=== PATIENT | female | born 1980 | race Caucasian/White ===

== ENCOUNTER 2016-11-18 01:17 | Emergency (ER) | payer MEDICAID ==
[2016-11-18] MEDS ORDERED: NORMAL SALINE 1000 ML 1,000 ML IV ONE (01:38)
[2016-11-18] MEDS ORDERED: METHOCARBAMOL INJ/PF 1000 MG/10 ML SDV IV ONE (01:39)
[2016-11-18] MEDS ORDERED: METOCLOPRAMIDE HCL INJ/PF 10 MG/2 ML SDV IV ONE (01:39)
[2016-11-18] MEDS ORDERED: DIPHENHYDRAMINE HCL 50 MG/ML VIAL IV ONE (01:39)
[2016-11-18] MEDS ORDERED: KETOROLAC TROMETHAMINE INJ/PF 30 MG/1 ML SDV IV ONE (01:40)
--- NOTE | 2016-11-18 01:42 | ER Document Report ---
ED Headache - General Time seen by provider: 01:40 TRAVEL OUTSIDE OF THE [place] IN LAST 30 DAYS: No - General Chief Complaint: Headache >24 hrs old Stated Complaint: POSSIBLE MIGRANE,VOMITING Notes: Patient is a 35-year-old female that comes emergency department for chief complaint of a headache, headache has been present for the past 2 days, worse on the right side with throbbing sensation, she also reports some tightness and pain in the right side of her neck/shoulder. Patient states that she is to be on amitriptyline and she occasionally has had migraine headaches like this where she has had be treated with IV medications. She denies that this is worse than her typical migraine. She reports nausea but has not vomited today, states she has not eaten anything either. Patient denies injury to her head or neck, denies fever. She has an IUD in place. (SOHAIL FERNANDES) - Related Data Allergies/Adverse Reactions: codeine [Codeine] Allergy (Verified 11/11/12 15:36) Past Medical History - General Information source: Patient - Social History Smoking Status: Never Smoker Frequency of alcohol use: None Drug Abuse: None Lives with: Family Family History: Reviewed & Not Pertinent, Other Patient has suicidal ideation: No Patient has homicidal ideation: No Pulmonary Medical History: Reports: Hx Asthma Neurological Medical History: Denies: Hx Cerebrovascular Accident Renal/ Medical History: Denies: Hx Peritoneal Dialysis GI Medical History: Reports: Hx Cirrhosis, Hx Hepatitis - CComment Only: Hx Ulcer - hepatits c Musculoskeltal Medical History: Reports Hx Arthritis, Reports Hx Musculoskeletal Deformity Psychiatric Medical History: Reports: Hx Anxiety, Hx Depression Traumatic Medical History: Reports: Hx Fractures - right forearm Infectious Medical History: Reports: Hx Hepatitis - C Past Surgical History: Reports: Hx Section, Hx Dilation and Curettage, Hx Orthopedic Surgery - BL LEs, Hx Tonsillectomy - Immunizations Hx Diphtheria, Pertussis, Tetanus Vaccination: No Review of Systems - Review of Systems Constitutional: No symptoms reported EENT: No symptoms reported Cardiovascular: No symptoms reported Respiratory: No symptoms reported Gastrointestinal: See HPI Genitourinary: No symptoms reported Female Genitourinary: No symptoms reported Musculoskeletal: No symptoms reported Skin: No symptoms reported Hematologic/Lymphatic: No symptoms reported Neurological/Psychological: See HPI Physical Exam - Vital signs Interpretation: Normal - General General appearance: Alert In distress: Mild - Appears mildly uncomfortable, no severe distress - HEENT Head: Normocephalic, Atraumatic Eyes: Normal Conjunctiva: Normal Extraocular movements intact: Yes Eyelashes: Normal Pupils: PERRL Sinus: Normal Nasal: Normal Mouth/Lips: Normal Mucous membranes: Normal Pharynx: Normal Neck: Normal - Respiratory Respiratory status: No respiratory distress Chest status: Nontender Breath sounds: Normal. No: Decreased air movement, Wheezing Chest palpation: Normal - Cardiovascular Rhythm: Regular. No: Tachycardia Heart sounds: Normal auscultation, S1 appreciated, S2 appreciated Murmur: No - Abdominal Inspection: Normal Distension: No distension Bowel sounds: Normal Tenderness: Nontender. No: Tender, Guarding Organomegaly: No organomegaly - Back Back: Tender - Mild right trapezius tenderness, no spinal tenderness, normal upper and lower extremity range of motion, patient with mild tenderness with lateral rotation of neck, no nuchal rigidity, no saddle anesthesia, normal distal neurovascular exam. No signs of trauma. - Extremities General upper extremity: Normal inspection, Nontender, Normal color, Normal ROM , Normal temperature General lower extremity: Normal inspection, Nontender, Normal color, Normal ROM , Normal temperature, Normal weight bearing. No: Maria Guadalupe's sign - Neurological Neuro grossly intact: Yes Cognition: Normal Orientation: AAOx4 [place] Coma Scale Eye Opening: Spontaneous [place] Coma Scale Verbal: Oriented [place] Coma Scale Motor: Obeys Commands [place] Coma Scale Total: 15 Speech: Normal Motor strength normal: LUE, RUE, LLE, RLE Sensory: Normal - Psychological Associated symptoms: Normal affect, Normal mood - Skin Skin Temperature: Warm Skin Moisture: Dry Skin Color: Normal Course - Re-evaluation Re-evalutation: Patient appears mildly uncomfortable on initial examination but has no neurological deficits, she does not appear to be in distress. Very mild right trapezius tenderness and slight tenderness with lateral range of motion of the neck. No nuchal rigidity, fever, injury. Patient reports history of the same, states this is identical to previous migraines. Treatment patient reports improvement but not resolution, states she does better with Phenergan, patient also given dexamethasone after discussion. On reevaluation again patient sleeping and aroused, states her headache is completely gone, she is smiling, she states she is ready to go home. Very low suspicion of subarachnoid hemorrhage, meningitis, or other acute abnormality. Recommended she follow up with primary care for additional management, discussed return precautions, patient states understanding and agreement. (SOHAIL FERNANDES) - Vital Signs Vital signs: Temp Pulse Resp BP Pulse Ox 98.1 F 82 16 118/82 98 11/18/16 03:24 11/18/16 03:56 11/18/16 03:56 11/18/16 03:56 11/18/16 03:56 Discharge - Discharge Clinical Impression: Headache Qualifiers: Headache type: unspecified Headache chronicity pattern: acute headache Intractability: not intractable Qualified Code(s): R51 - Headache Condition: Stable Disposition: HOME, SELF-CARE Additional Instructions: Your symptoms and response to treatment are consistent with a migraine. Follow up with primary care for additional management. Return to emergency department for any returned or new concerning symptoms. Referrals: GENO VORA MD [Primary Care Provider] - Follow up as needed
[2016-11-18] MEDS ORDERED: PROMETHAZINE HCL INJ 25 MG/1 ML VIAL IM ONE (02:47)
[2016-11-18] MEDS ORDERED: DEXAMETHASONE SOD PHOS INJ 10 MG/1 ML VIAL IV ONE (02:48)
[2016-11-18] MEDS ORDERED: PROMETHAZINE HCL INJ 50 MG/1 ML VIAL ONE (03:14)
[2016-11-18 03:59] VITALS: BP 118/82
== END 2016-11-18 03:59 | disposition home or self-care (01) ==
LOC: ER 01:17
DX: R51 Headache (principal); R11.0 Nausea; Z88.6 Allergy status to analgesic agent; Z86.19 Personal history of other infectious and parasitic diseases; Z97.5 Presence of (intrauterine) contraceptive device
CPT/HCPCS: 99283; 96372; 96374; 96375; J1200; J2800; J1885; J2765; J2550; J7030; J1100

== ENCOUNTER 2017-03-08 17:08 | Emergency (ER) | payer MEDICAID ==
[2017-03-08 21:02] LABS: APPEARANCE,URINE TURBID; BILIRUBIN,URINE NEGATIVE (NEGATIVE); GLUCOSE, URINE NEGATIVE (NEGATIVE); KETONES,URINE 20 mg/dL (NEGATIVE); LEUKOCYTE ESTERASE,URINE TRACE (NEGATIVE); NITRITE,URINE NEGATIVE (NEGATIVE); PROTEIN,URINE NEGATIVE (NEGATIVE); URINE SPECIFIC GRAVITY 1.026; UROBILINOGEN,URINE NEGATIVE mg/dL (<2.0)
--- NOTE | 2017-03-08 21:35 | ER Document Report ---
ED GI/ - General Chief Complaint: Flank Pain Stated Complaint: RIGHT SIDE PAIN Time Seen by Provider: 03/08/17 21:34 Notes: The patient is a 36-year-old female who presents with 2 days of right flank pain radiating into her groin, described as intermittent. She is also having nausea. Denies vomiting, fevers, hematuria, diarrhea, constipation, rash, chest pain or shortness of breath. TRAVEL OUTSIDE OF THE [place] IN LAST 30 DAYS: No - Related Data Allergies/Adverse Reactions: codeine [Codeine] Allergy (Verified 11/11/12 15:36) Past Medical History - General Information source: Patient - Social History Smoking Status: Current Every Day Smoker Chew tobacco use (# tins/day): No Frequency of alcohol use: None Drug Abuse: None Family History: Reviewed & Not Pertinent, Other Patient has suicidal ideation: No Patient has homicidal ideation: No Pulmonary Medical History: Reports: Hx Asthma Neurological Medical History: Denies: Hx Cerebrovascular Accident Renal/ Medical History: Denies: Hx Peritoneal Dialysis GI Medical History: Reports: Hx Cirrhosis, Hx Hepatitis - CComment Only: Hx Ulcer - hepatits c Musculoskeltal Medical History: Reports Hx Arthritis, Reports Hx Musculoskeletal Deformity Psychiatric Medical History: Reports: Hx Anxiety, Hx Depression Traumatic Medical History: Reports: Hx Fractures - right forearm Infectious Medical History: Reports: Hx Hepatitis - C Past Surgical History: Reports: Hx Section, Hx Dilation and Curettage, Hx Orthopedic Surgery - BL LEs, Hx Tonsillectomy - Immunizations Hx Diphtheria, Pertussis, Tetanus Vaccination: No Review of Systems - Review of Systems Notes: REVIEW OF SYSTEMS: CONSTITUTIONAL: -fevers, -chills EENT: -eye pain, -difficulty swallowing, -nasal congestion CARDIOVASCULAR:-chest pain, -syncope. RESPIRATORY: -cough, -SOB GASTROINTESTINAL: +abdominal pain, +nausea, -vomiting, -diarrhea GENITOURINARY: -dysuria, -hematuria MUSCULOSKELETAL: +right flank pain, -neck pain SKIN: -rash or skin lesions. HEMATOLOGIC: -easy bruising or bleeding. LYMPHATIC: -swollen, enlarged glands. NEUROLOGICAL: -altered mental status or loss of consciousness, -headache, - neurologic symptoms PSYCHIATRIC: -anxiety, -depression. ALL OTHER SYSTEMS REVIEWED AND NEGATIVE. Physical Exam - Vital signs Vitals: Temp Pulse Resp BP Pulse Ox 98.8 F 82 15 108/76 96 03/08/17 17:22 03/08/17 17:22 03/08/17 17:22 03/08/17 17:22 03/08/17 17:22 - Notes Notes: PHYSICAL EXAMINATION: GENERAL: Well-appearing, well-nourished and in no acute distress. HEAD: Atraumatic, normocephalic. EYES: Pupils equal round and reactive to light, extraocular movements intact, sclera anicteric, conjunctiva are normal. ENT: nares patent, oropharynx clear without exudates. Moist mucous membranes. NECK: Normal range of motion, supple without lymphadenopathy LUNGS: Breath sounds clear to auscultation bilaterally and equal. No wheezes rales or rhonchi. HEART: Regular rate and rhythm without murmurs ABDOMEN: Soft, nontender, normoactive bowel sounds. No guarding, no rebound. No masses appreciated. EXTREMITIES: Normal range of motion, no pitting or edema. No cyanosis. NEUROLOGICAL: Cranial nerves grossly intact. Normal speech, normal gait. Normal sensory and motor exams. PSYCH: Normal mood, normal affect. SKIN: Warm, Dry, normal turgor, no rashes or lesions noted. Course - Re-evaluation Re-evalutation: Patient appears well. Her CT scan does not show evidence of appendicitis or kidney stones. Her urinalysis does not show evidence of pyelonephritis. Instructed patient to begin anti-inflammatories and f/u at PMD. - Vital Signs Vital signs: Temp Pulse Resp BP Pulse Ox 98.8 F 82 15 108/76 96 03/08/17 17:22 03/08/17 17:22 03/08/17 17:22 03/08/17 17:22 03/08/17 17:22 - Laboratory Laboratory results interpreted by me: 03/08/17 17:28 Urine Ketones 20 H Ur Leukocyte Esterase TRACE H - Diagnostic Test Radiology reviewed: Image reviewed, Reports reviewed Radiology results interpreted by me: CT Renal Stone study: NAD Discharge - Discharge Clinical Impression: Nausea, Right flank pain Condition: Stable Disposition: HOME, SELF-CARE Additional Instructions: Flank Pain We weren't able to prove an exact cause for your flank pain. Pain in the flank can be caused by a muscle strain or spasm. Sometimes a kidney stone causes pain, but can't be found on our tests. Infection in the kidney should be evident on a urine test. Early shingles can occasionally cause flank pain, without the rash that proves the diagnosis. On rare occasions, disease of the pancreas, aorta, spleen, or colon can create pain in the flank. At this time, there's no evidence of a dangerous condition, and it seems safe for you to be at home. If the pain goes away and does not come back, no further testing will be needed. If pain persists, or becomes more severe, we may need to repeat some tests or order additional new testing. Blood in the urine, urgency to urinate frequently, and pain that radiates to the groin can indicate a kidney stone. Fever may mean that the pain is due to infection, either of the kidney or the colon (diverticulitis). If your pain is early shingles, you should develop an eruption of blisters in the painful area within a few days. Call the doctor or return if you have pain that is spreading or becoming more severe, pain that does not resolve with time, fever, or any other new symptoms. Prescriptions: Ondansetron [Zofran Odt 4 mg Tablet] 1 - 2 tab PO Q4H PRN #15 tab.rapdis PRN Reason: For Nausea/Vomiting
--- NOTE | 2017-03-08 22:39 | RADIOLOGY REPORT (SQ) ---
EXAM DESCRIPTION: CT LTD RENAL STONE PROTOCOL ON COMPLETED DATE/TIME: 03/08/2017 9:58 pm REASON FOR STUDY: right flank pain into groin COMPARISON: None. TECHNIQUE: CT scan of the abdomen and pelvis performed without intravenous or oral contrast. Images reviewed with lung, soft tissue, and bone windows. Reconstructed coronal and sagittal MPR images revi ewed. All images stored on PACS. All CT scanners at this facility use dose modulation, iterative reconstruction, and/or weight based d osing when appropriate to reduce radiation dose to as low as reasonably achievable (ALARA). [facility]: Dose Right [facility]: CareDose [facility]: Dose Right [facility]: Teradose 4D [facility]: Smart Textingly RADIATION DOSE: Up-to-date CT equipment and radiation dose reduction techniques were employed. CTDIv ol: 8.1 mGy. DLP: 411 mGy-cm.mGy. LIMITATIONS: None. FINDINGS: LOWER CHEST: No significant findings. No nodules or infiltrates. NON-CONTRASTED LIVER, SPLEEN, ADRENALS: Evaluation limited by lack of IV contrast. No identified sign ificant masses. PANCREAS: No masses. No peripancreatic inflammatory changes. GALLBLADDER: No identified stones by CT criteria. No inflammatory changes to suggest cholecystitis. RIGHT KIDNEY AND URETER: No suspicious masses. Assessment limited by lack of IV contrast. No signif icant calcifications. No hydronephrosis or hydroureter. LEFT KIDNEY AND URETER: No suspicious masses. Assessment limited by lack of IV contrast. No signifi cant calcifications. No hydronephrosis or hydroureter. AORTA AND RETROPERITONEUM: No aneurysm. No retroperitoneal masses or adenopathy. BOWEL AND PERITONEAL CAVITY: No obvious masses or inflammatory changes. No free fluid. APPENDIX: Normal. PELVIS, BLADDER, AND ABDOMINAL WALL:IUD present in the uterus. No abnormal masses. No free fluid. Bl adder normal. BONES: No significant findings. OTHER: No other significant finding. IMPRESSION: NO ACUTE PROCESS IN THE ABDOMEN OR PELVIS. TECHNICAL DOCUMENTATION: JOB ID: [id number] Quality ID # [id number]: Final reports with documentation of one or more dose reduction techniques (e.g., Au tomated exposure control, adjustment of the mA and/or kV according to patient size, use of iterative reconstruction technique) 2010 [employer]- All Rights Reserved
[2017-03-08] MEDS ORDERED: IBUPROFEN 600 MG TABLET PO ONE (22:56)
[2017-03-08] MEDS ORDERED: ONDANSETRON 4 MG TAB.RAPDIS PO ONE (22:56)
[2017-03-08] MEDS ORDERED: HYDROCODONE/ACETAMINOPHEN 5-325 MG TABLET PO ONE (22:56)
[2017-03-08 23:33] VITALS: BP 108/74
== END 2017-03-08 23:30 | disposition home or self-care (01) ==
LOC: ER 17:08
DX: R10.9 Unspecified abdominal pain (principal); R11.0 Nausea; J45.909 Unspecified asthma, uncomplicated; F17.200 Nicotine dependence, unspecified, uncomplicated; Z88.5 Allergy status to narcotic agent; Z87.19 Personal history of other diseases of the digestive system; Z86.19 Personal history of other infectious and parasitic diseases
CPT/HCPCS: 99284; 81025; 81001; 76380; S0119; J3490

== ENCOUNTER 2017-06-14 16:16 | Emergency (ER) | payer MEDICAID ==
--- NOTE | 2017-06-14 17:23 | ER Document Report ---
HPI - HPI Pain Level: 3 Notes: Patient is a 36-year-old female who presents ED complaining of distal right forearm pain and swelling status post fall downstairs prior to arrival. Patient states that she fell on her wrist and did not hit her head or lose consciousness. She denies any nausea or vomiting. Patient states that she does have a previous history of that wrist of screws and plate placement. Patient states that she has noticed swelling to the wrist which is not normally there. Patient does have pain to that area, but denies any pain or discomfort into her hand or fingers. Patient states that she is still able to move her hand and fingers without difficulties. She has not had any numbness or tingling. She has not noticed any redness or bruising. Patient admits to smoking but denies IV drug use. Denies any headache, fever, head injury, neck pain, changes in vision/speech/mentation/hearing, URI, sore throat, chest pain, palpitations, syncope, cough, shortness of breath, wheeze, dyspnea, abdominal pain, nausea/vomiting/diarrhea, urinary retention, dysuria, hematuria, loss of control of bowel or bladder, numbness/tingling, saddle anesthesia, muscle paralysis/weakness, or rash. - ROS Notes: REVIEW OF SYSTEMS: CONSTITUTIONAL : Denies fever, chills, or sweats. Denies recent illness. EENT: Denies eye, ear, throat, or mouth pain or symptoms. Denies nasal or sinus congestion or discharge. Denies throat, tongue, or mouth swelling or difficulty swallowing. CARDIOVASCULAR: Denies chest pain. Denies palpitations or racing or irregular heart beat. Denies ankle edema. RESPIRATORY: Denies cough, cold, or chest congestion. Denies shortness of breath, difficulty breathing, or wheezing. GASTROINTESTINAL: Denies abdominal pain or distention. Denies nausea, vomiting , or diarrhea. GENITOURINARY: Denies difficulty urinating, painful urination, burning, frequency, blood in urine, or discharge. MUSCULOSKELETAL: see hpi SKIN: Denies rash, lesions or sores. NEUROLOGICAL: Denies confusion or altered mental status. Denies passing out or loss of consciousness. Denies dizziness or lightheadedness. Denies headache. Denies weakness or paralysis or loss of use of either side. Denies problems with gait or speech. Denies sensory loss, numbness, or tingling. ALL OTHER SYSTEMS REVIEWED AND NEGATIVE. Dictation was performed using [employer] voice recognition software - REPRODUCTIVE Reproductive: DENIES: : Past Medical History - Social History Smoking Status: Current Every Day Smoker Family History: Reviewed & Not Pertinent, Other Pulmonary Medical History: Reports: Hx Asthma Neurological Medical History: Denies: Hx Cerebrovascular Accident Renal/ Medical History: Denies: Hx Peritoneal Dialysis GI Medical History: Reports: Hx Cirrhosis, Hx Hepatitis - CComment Only: Hx Ulcer - hepatits c Musculoskeltal Medical History: Reports Hx Arthritis, Reports Hx Musculoskeletal Deformity Psychiatric Medical History: Reports: Hx Anxiety, Hx Depression Traumatic Medical History: Reports: Hx Fractures - right forearm Infectious Medical History: Reports: Hx Hepatitis - C Past Surgical History: Reports: Hx Section, Hx Dilation and Curettage, Hx Orthopedic Surgery - BL LEs, Hx Tonsillectomy - Immunizations Hx Diphtheria, Pertussis, Tetanus Vaccination: No Vertical Provider Document - CONSTITUTIONAL Agree With Documented VS: Yes Notes: PHYSICAL EXAMINATION: GENERAL: Well-appearing, well-nourished and in no acute distress. A&Ox4 LUNGS: Breath sounds clear to auscultation bilaterally and equal. No wheezes rales or rhonchi. HEART: Regular rate and rhythm without murmurs, rubs, gallops. Musculoskeletal: Rt elbow, wrist, hand, fingers: FROM to passive/active. Strength 5+/5. + swelling noted to the distal forearm. No obvious ecchymosis or erythema noted. + tenderness to the distal radius/ulna to palp. N/V intact distal. No scaphoid tenderness. No other bony tenderness. Compartment is soft and non-tender. Extremities: No cyanosis, clubbing, or edema b/l. Peripheral pulses 2+. Capillary refill less than 3 seconds. NEUROLOGICAL: Normal speech, normal gait. Normal sensory, motor exams PSYCH: Normal mood, normal affect. SKIN: Warm, Dry, normal turgor, no rashes or lesions noted. - INFECTION CONTROL TRAVEL OUTSIDE OF THE [place] IN LAST 30 DAYS: No - RESPIRATORY O2 Sat by Pulse Oximetry: 97 Course - Re-evaluation Re-evalutation: 06/14/17 17:55 Patient is an afebrile, well-hydrated, 36-year-old female who presents the ED with wrist pain, suspect sprain versus strain. Vitals are stable. PE is otherwise unremarkable for any neurovascular compromise, obvious tendon/ ligament rupture, obvious fracture or dislocation. X-ray was unremarkable for any acute pathology. Recommend conservative measures for symptoms. Recheck with your PCM in 3-5 days. Return to the ED with any worsening/concerning symptoms otherwise as reviewed in discharge. Consider consult orthopedics and physical therapy. Patient is in agreement. - Vital Signs Vital signs: Temp Pulse Resp BP Pulse Ox 98.5 F 65 18 114/74 97 06/14/17 16:37 06/14/17 16:37 06/14/17 16:37 06/14/17 16:37 06/14/17 16:37 Discharge - Discharge Clinical Impression: Right wrist pain Condition: Stable Disposition: HOME, SELF-CARE Instructions: Wrist Sprain ([facility]), Contusion ([facility]), Ice & Elevation ([facility]) Additional Instructions: Rest, Ice, Compression, Elevation Tylenol/ibuprofen as needed Light stretches daily Strength exercises as able Moist heat and massage may help F/u with your PCP in 3-5 days for a recheck Consider consult(s) with Orthopedics/physical therapy for ongoing/worsening symptoms Return to the ED with any worsening symptoms and/or development of fever, headache, chest pain, palpitations, syncope, shortness of breath, trouble breathing, abdominal pain, n/v/d, muscle weakness/paralysis, numbness/tingling, swelling, redness, or other worsening symptoms that are concerning to you. Prescriptions: Naproxen 500 mg PO BID PRN #30 tablet PRN Reason: Referrals: [facility] [Provider Group] - Follow up as needed
--- NOTE | 2017-06-14 17:47 | RADIOLOGY REPORT (SQ) ---
EXAM DESCRIPTION: FOREARM RIGHT COMPLETED DATE/TIME: 06/14/2017 5:36 pm REASON FOR STUDY: distal forearm pain and swelling s/p injury COMPARISON: None. NUMBER OF VIEWS: Two views. TECHNIQUE: Two radiographic images acquired of the right forearm, including elbow and wrist in at le ast one projection. LIMITATIONS: None. FINDINGS: MINERALIZATION: Normal. BONES: No acute fracture. No bone lesions. SOFT TISSUES: No obvious swelling or foreign body. OTHER: There is a compression plate on the distal ulna from a prior fracture. IMPRESSION: NEGATIVE STUDY OF THE RIGHT FOREARM. NO RADIOGRAPHIC EVIDENCE OF ACUTE INJURY. TECHNICAL DOCUMENTATION: JOB ID: [id number] [employer]- All Rights Reserved
[2017-06-14 18:16] VITALS: BP 107/68
== END 2017-06-14 18:13 | disposition home or self-care (01) ==
LOC: ER 16:16
DX: M25.531 Pain in right wrist (principal); M79.89 Other specified soft tissue disorders; W10.9XXA Fall (on) (from) unspecified stairs and steps, initial encounter; J45.909 Unspecified asthma, uncomplicated; F17.200 Nicotine dependence, unspecified, uncomplicated; Z87.81 Personal history of (healed) traumatic fracture; Z98.890 Other specified postprocedural states
CPT/HCPCS: 99283

== ENCOUNTER 2017-08-28 17:02 | Emergency (ER) | payer MEDICAID ==
[2017-08-28 18:04] VITALS: BP 118/79
[2017-08-28] MEDS ORDERED: HYDROCODONE/ACETAMINOPHEN 5-325 MG TABLET PO ONE (18:49)
[2017-08-28] MEDS ORDERED: ONDANSETRON 4 MG TAB.RAPDIS PO ONE ×2 (18:49→22:53)
[2017-08-28 21:30] LABS: HEMATOCRIT 41.8 % (36.0-47.0); HEMOGLOBIN 14.6 g/dL (12.0-15.5); MEAN CORPUSCULAR HEMOGLOBIN 30.9 pg (27.0-33.4); MEAN CORPUSCULAR VOLUME 88 fl (80-97); PLATELET COUNT 153 10^3/uL (150-450); RED BLOOD COUNT 4.74 10^6/uL (3.72-5.28); RED CELL DISTRIBUTION WIDTH 12.8 % (11.5-14.0); WHITE BLOOD COUNT 13.6 10^3/uL (4.0-10.5)
[2017-08-28 21:44] LABS: ALANINE AMINOTRANSFERASE 28 U/L (9-52); ALBUMIN 5.2 g/dL (3.5-5.0); ALKALINE PHOSPHATASE 60 U/L (38-126); ANION GAP 19 (5-19); ASPARTATE AMINO TRANSFERASE 21 U/L (14-36); BILIRUBIN,DIRECT 0.2 mg/dL (0.0-0.4); BILIRUBIN,TOTAL 0.9 mg/dL (0.2-1.3); BLOOD UREA NITROGEN 13 mg/dL (7-20); CARBON DIOXIDE 18 mmol/L (22-30); CHLORIDE 105 mmol/L (98-107); GLUCOSE 95 mg/dL (75-110); LIPASE 63.6 U/L (23-300); POTASSIUM 4.1 mmol/L (3.6-5.0); SODIUM 141.5 mmol/L (137-145); TOTAL PROTEIN 7.9 g/dL (6.3-8.2)
[2017-08-28 21:46] LABS: ABSOLUTE MONOCYTES # (MANUAL) 0.4 10^3/uL (0.1-1.4); ABSOLUTE NEUTROPHILS# (MANUAL) 12.2 10^3/uL (1.7-8.2); BAND NEUTROPHILS % (MANUAL) 2 % (3-5); BASOPHILS % (MANUAL) 0 % (0-2); EOSINOPHILS % (MANUAL) 0 % (0-6); LYMPHOCYTES % (MANUAL) 5 % (13-45); MONOCYTES % (MANUAL) 3 % (3-13); SEGMENTED NEUTROPHILS % (MAN) 88 % (42-78); TOTAL CELLS COUNTED 100
[2017-08-28 21:47] LABS: PLATELET COMMENT ADEQUATE; RBC MORPHOLOGY COMMENT NORMO-CYTIC/CHROMIC
--- NOTE | 2017-08-28 22:56 | ER Document Report ---
ED Medical Screen (RME) - General Chief Complaint: Shortness Of Breath Stated Complaint: CHEST PAIN Time Seen by Provider: 08/28/17 18:49 Information source: Patient Notes: PT VOMITING, ZOFRAN ORDERED TRAVEL OUTSIDE OF THE [place] IN LAST 30 DAYS: No - Related Data Allergies/Adverse Reactions: codeine [Codeine] Allergy (Verified 08/28/17 17:57) Past Medical History - Social History Chew tobacco use (# tins/day): No Frequency of alcohol use: None Drug Abuse: None Pulmonary Medical History: Reports: Hx Asthma Neurological Medical History: Denies: Hx Cerebrovascular Accident Renal/ Medical History: Denies: Hx Peritoneal Dialysis GI Medical History: Reports: Hx Cirrhosis, Hx Hepatitis - CComment Only: Hx Ulcer - hepatits c Musculoskeltal Medical History: Reports Hx Arthritis, Reports Hx Musculoskeletal Deformity Psychiatric Medical History: Reports: Hx Anxiety, Hx Depression Traumatic Medical History: Reports: Hx Fractures - right forearm Infectious Medical History: Reports: Hx Hepatitis - C Past Surgical History: Reports: Hx Section, Hx Dilation and Curettage, Hx Orthopedic Surgery - BL LEs, Hx Tonsillectomy - Immunizations Hx Diphtheria, Pertussis, Tetanus Vaccination: No Physical Exam - Vital signs Vitals: Temp Pulse Resp BP Pulse Ox 98.4 F 78 12 118/79 100 08/28/17 18:02 08/28/17 18:02 08/28/17 18:02 08/28/17 18:02 08/28/17 18:02 Course - Re-evaluation Re-evalutation: 08/28/17 22:55 ZOFRAN ORDERED, PT VOMITING - Vital Signs Vital signs: Temp Pulse Resp BP Pulse Ox 98.4 F 78 12 118/79 100 08/28/17 18:02 08/28/17 18:02 08/28/17 18:02 08/28/17 18:02 08/28/17 18:02 - Laboratory Result Diagrams: 08/28/17 21:13 08/28/17 21:13 Laboratory results interpreted by me: 08/28/17 08/28/17 21:13 21:13 WBC 13.6 H Seg Neuts % (Manual) 88 H Band Neutrophils % 2 L Lymphocytes % (Manual) 5 L Abs Neuts (Manual) 12.2 H Carbon Dioxide 18 L Calcium 11.0 H Albumin 5.2 H
--- NOTE | 2017-08-29 09:27 | EKG REPORT ---
SEVERITY:- NORMAL ECG - SINUS RHYTHM : Confirmed by: Yamini Castle 29-Aug-2017 09:26:43
== END 2017-08-29 01:00 | disposition left against medical advice (07) ==
LOC: ER 17:02
DX: Z53.21 Procedure and treatment not carried out due to patient leaving prior to being seen by health care provider (principal); R06.02 Shortness of breath; R07.9 Chest pain, unspecified; R11.10 Vomiting, unspecified
CPT/HCPCS: 93005; 99281; 36415; 83690; 85025; 80053; 93010; S0119

== ENCOUNTER → 2018-03-08 | Outpatient (CLI) | payer OTHER ==
--- NOTE | 2018-03-08 14:00 | WOMENS IMAGING REPORT ---
EXAM DESCRIPTION: BILAT DIAGNOSTIC MAMMO W/CAD; U/S BREAST UNILAT LIMITED COMPLETED DATE/TIME: 03/08/2018 12:54 pm; 03/08/2018 1:24 pm REASON FOR STUDY: MASS; LEFT BREAST LUMP COMPARISON: None. TECHNIQUE: Standard craniocaudal and mediolateral oblique views of each breast recorded using digita l acquisition. True lateral and cone compression views of the left breast. LIMITATIONS: None. FINDINGS: RIGHT BREAST MASSES: No suspicious masses. CALCIFICATIONS: No new or suspicious calcifications. ARCHITECTURAL DISTORTION: None. DEVELOPING DENSITY: None. ASYMMETRY: None noted. OTHER: No other significant findings. LEFT BREAST MASSES: Heterogeneous mass with central calcifications and architectural distortion in the upper oute r quadrant 1-2 o'clock position. CALCIFICATIONS: See above. ARCHITECTURAL DISTORTION: See above. DEVELOPING DENSITY: None. ASYMMETRY: None noted. OTHER: No other significant finding. Read with the assistance of CAD: .[facility] - R2 Cenova Version 1.3 .[facility] Imaging - R2 Cenova Version 1.3 .[facility] Imaging - R2 Cenova Version 2.4 .[facility] - R2 Cenova Version 2.4 .[facility] - R2 Pipe Cleaning Machine Operator Version 9.2 Ultrasound left breast demonstrates 4.7 x 3.6 x 1.9 cm heterogeneous mass with internal flow. IMPRESSION: Highly suspicious mass left breast. BREAST DENSITY: b. There are scattered areas of fibroglandular density. BIRAD: 5 Highly suggestive of malignancy. Appropriate action should be taken. RECOMMENDATION: RECOMMENDED FOLLOW UP: Birads 5: Biopsy should be performed in the absence of clinic al contraindication. SPECIFIC INTERVENTION/IMAGING/CONSULTATION RECOMMENDED:The suspicious finding(s) amenable to US guide d core/vacuum assisted biopsy. COMMUNICATION:The imaging findings were not discussed with the patient. Her referring provider has be en notified of the findings. COMMENT: The patient has been notified of the results by letter per SA requirements. Additional no tification policies are in place for contacting patient with suspicious or incomplete findings. Quality ID #225: The [employer] recommends an annual screening mammogram for women aged 40 years or over. This facility utilizes a reminder system to ensure that all patients receive reminder letters, and/or direct phone calls for appointments. This includes reminders for routine scr eening mammograms, diagnostic mammograms, or other Breast Imaging Interventions when appropriate. Th is patient will be placed in the appropriate reminder system. The [employer] (ACR) has developed recommendations for screening MRI of the breast s in certain patient populations, to be used in conjunction with mammography. Breast MRI surveillanc e may be appropriate for women with more than 20% lifetime risk of developing breast cancer as deter mined by genetic testing, significant family history of the disease, or history of mantle radiation f or Hodgkins Disease. ACR Practice Guidelines 2008. TECHNICAL DOCUMENTATION: FINDING NUMBER: (1) ASSESSMENT: (1) JOB ID: [id number] [employer]- All Rights Reserved Reading location - IP/workstation name: [facility]
--- NOTE | 2018-03-08 14:00 | WOMENS IMAGING REPORT ---
EXAM DESCRIPTION: BILAT DIAGNOSTIC MAMMO W/CAD; U/S BREAST UNILAT LIMITED COMPLETED DATE/TIME: 03/08/2018 12:54 pm; 03/08/2018 1:24 pm REASON FOR STUDY: MASS; LEFT BREAST LUMP COMPARISON: None. TECHNIQUE: Standard craniocaudal and mediolateral oblique views of each breast recorded using digita l acquisition. True lateral and cone compression views of the left breast. LIMITATIONS: None. FINDINGS: RIGHT BREAST MASSES: No suspicious masses. CALCIFICATIONS: No new or suspicious calcifications. ARCHITECTURAL DISTORTION: None. DEVELOPING DENSITY: None. ASYMMETRY: None noted. OTHER: No other significant findings. LEFT BREAST MASSES: Heterogeneous mass with central calcifications and architectural distortion in the upper oute r quadrant 1-2 o'clock position. CALCIFICATIONS: See above. ARCHITECTURAL DISTORTION: See above. DEVELOPING DENSITY: None. ASYMMETRY: None noted. OTHER: No other significant finding. Read with the assistance of CAD: .[facility] - R2 Cenova Version 1.3 .[facility] Imaging - R2 Cenova Version 1.3 .[facility] Imaging - R2 Cenova Version 2.4 .[facility] - R2 Cenova Version 2.4 .[facility] - R2 Tech Intern Version 9.2 Ultrasound left breast demonstrates 4.7 x 3.6 x 1.9 cm heterogeneous mass with internal flow. IMPRESSION: Highly suspicious mass left breast. BREAST DENSITY: b. There are scattered areas of fibroglandular density. BIRAD: 5 Highly suggestive of malignancy. Appropriate action should be taken. RECOMMENDATION: RECOMMENDED FOLLOW UP: Birads 5: Biopsy should be performed in the absence of clinic al contraindication. SPECIFIC INTERVENTION/IMAGING/CONSULTATION RECOMMENDED:The suspicious finding(s) amenable to US guide d core/vacuum assisted biopsy. COMMUNICATION:The imaging findings were not discussed with the patient. Her referring provider has be en notified of the findings. COMMENT: The patient has been notified of the results by letter per SA requirements. Additional no tification policies are in place for contacting patient with suspicious or incomplete findings. Quality ID #225: The [employer] recommends an annual screening mammogram for women aged 40 years or over. This facility utilizes a reminder system to ensure that all patients receive reminder letters, and/or direct phone calls for appointments. This includes reminders for routine scr eening mammograms, diagnostic mammograms, or other Breast Imaging Interventions when appropriate. Th is patient will be placed in the appropriate reminder system. The [employer] (ACR) has developed recommendations for screening MRI of the breast s in certain patient populations, to be used in conjunction with mammography. Breast MRI surveillanc e may be appropriate for women with more than 20% lifetime risk of developing breast cancer as deter mined by genetic testing, significant family history of the disease, or history of mantle radiation f or Hodgkins Disease. ACR Practice Guidelines 2008. TECHNICAL DOCUMENTATION: FINDING NUMBER: (1) ASSESSMENT: (1) JOB ID: [id number] [employer] All Rights Reserved Reading location - IP/workstation name: [facility]
== END ==
LOC: WI 12:28
PROVIDERS: ATTEND Family Medicine
DX: N63.21 Unspecified lump in the left breast, upper outer quadrant (principal)
CPT/HCPCS: 76642; 77066

== ENCOUNTER → 2018-04-20 | Outpatient (CLI) | payer OTHER ==
--- NOTE | 2018-04-20 15:56 | RADIOLOGY REPORT (SQ) ---
EXAM DESCRIPTION: NM WHOLE BODY BONE SCAN COMPLETED DATE/TIME: 04/20/2018 3:43 pm REASON FOR STUDY: L BREAST CA COMPARISON: No available imaging studies for comparison. RADIONUCLIDE AND DOSE: 21.0 millicuries Tc99m MDP. The route of agent administration: Intravenous. ADDITIONAL DRUGS AND DOSES: None. TECHNIQUE: Routine delayed images at 3 hour post radionuclide injection acquired of the bony skeleto n including anterior and posterior whole-body projections and additional focused images as needed. LIMITATIONS: None. FINDINGS: BONES: Normal visualization without areas of photopenia or increased bony uptake of radiop harmaceutical. Focal non bone uptake in the right axilla most likely artifact. KIDNEYS: Symmetric excretion without obstruction. OTHER: No other significant finding. IMPRESSION: No evidence of metastatic disease. COMMENT: Quality measure 147: No available prior imaging studies for comparison TECHNICAL DOCUMENTATION: JOB ID: [id number] [employer]- All Rights Reserved Reading location - IP/workstation name: [email or web address]
== END ==
LOC: RAD 10:36
PROVIDERS: ATTEND Family Medicine
DX: C50.912 Malignant neoplasm of unspecified site of left female breast (principal)
CPT/HCPCS: 78306; A9561; Q9969

== ENCOUNTER → 2018-04-23 | Outpatient (CLI) | payer OTHER ==
--- NOTE | 2018-04-23 14:10 | RADIOLOGY REPORT (SQ) ---
EXAM DESCRIPTION: CT CHEST WITH COMPLETED DATE/TIME: 04/23/2018 1:34 pm REASON FOR STUDY: LEFT BREAST CANCER COMPARISON: None. TECHNIQUE: CT scan of the chest performed using helical scanning technique with dynamic intravenous contrast injection. Images reviewed with lung, soft tissue and bone windows. Reconstructed coronal and sagittal MPR and MIP images reviewed. All images stored on PACS. All CT scanners at this facility use dose modulation, iterative reconstruction, and/or weight based d osing when appropriate to reduce radiation dose to as low as reasonably achievable (ALARA). [facility]: Dose Right [facility]: CareDose [facility]: Dose Right [facility]: Teradose 4D [facility]: [employer] CONTRAST TYPE AND DOSE: See separate report of the same date. RENAL FUNCTION: See separate report of the same date. RADIATION DOSE: . LIMITATIONS: None. FINDINGS: LUNGS AND PLEURA: On series 6 image 93, 2 mm pleural-based nodule. Low suspicion. Linear scarring in the middle lobe. No effusions. HILAR AND MEDIASTINAL STRUCTURES: No identified masses or abnormal nodes. HEART AND VASCULAR STRUCTURES: No aneurysm or dissection. No central pulmonary emboli. No pericardi al effusion. HARDWARE: None in the chest. UPPER ABDOMEN: See separate report of the CT of the abdomen. THYROID AND OTHER SOFT TISSUES: Post biopsy changes left breast. BONES: No significant finding. OTHER: No other significant finding. IMPRESSION: Less than 4 mm nodule right lower lobe. Low suspicion for metastatic disease. TECHNICAL DOCUMENTATION: JOB ID: [id number] Quality ID # [id number]: Final reports with documentation of one or more dose reduction techniques (e.g., Au tomated exposure control, adjustment of the mA and/or kV according to patient size, use of iterative reconstruction technique) 2010 [employer]- All Rights Reserved Reading location - IP/workstation name: [email or web address]
--- NOTE | 2018-04-23 14:19 | RADIOLOGY REPORT (SQ) ---
EXAM DESCRIPTION: CT ABD/PELVIS WITH IV ORAL COMPLETED DATE/TIME: 04/23/2018 1:34 pm REASON FOR STUDY: LEFT BREAST CANCER COMPARISON: CT renal stone 03/08/2017 TECHNIQUE: CT scan of the abdomen and pelvis performed using helical scanning technique with dynamic intravenous contrast injection. Oral contrast. Images reviewed with lung, soft tissue, and bone win dows. Reconstructed coronal and sagittal MPR images reviewed. Delayed images for evaluation of the ur inary system also acquired. All images stored on PACS. All CT scanners at this facility use dose modulation, iterative reconstruction, and/or weight based d osing when appropriate to reduce radiation dose to as low as reasonably achievable (ALARA). [facility]: Dose Right [facility]: CareDose [facility]: Dose Right [facility]: Teradose 4D [facility]: S B E CONTRAST TYPE AND DOSE: contrast/concentration: Isovue 350.00 mg/ml; Total Contrast Delivered: 69.0 ml; Total Saline Delivered: 65.0 ml RENAL FUNCTION: None required. The patient is less than 50 years old. RADIATION DOSE: CT Rad equipment meets quality standard of care and radiation dose reduction techniq ues were employed. CTDIvol: 4.4 - 5.0 mGy. DLP: 934 mGy-cm.. LIMITATIONS: None. FINDINGS: LOWER CHEST: See separate report of the CT of the chest. LIVER: Normal size. No masses. No dilated ducts. SPLEEN: Normal size. No focal lesions. PANCREAS: No masses. No significant calcifications. No adjacent inflammation or peripancreatic fluid collections. Pancreatic duct not dilated. GALLBLADDER: No identified stones by CT criteria. No inflammatory changes to suggest cholecystitis. ADRENAL GLANDS: No significant masses or asymmetry. RIGHT KIDNEY AND URETER: No solid masses. No significant calcifications. No hydronephrosis or hyd roureter. LEFT KIDNEY AND URETER: No solid masses. No significant calcifications. No hydronephrosis or hydr oureter. AORTA AND VESSELS: No aneurysm. No dissection. Renal arteries, SMA, celiac without stenosis. RETROPERITONEUM: No retroperitoneal adenopathy, hemorrhage or masses. BOWEL AND PERITONEAL CAVITY: No masses or inflammatory changes. No free fluid or peritoneal masses. APPENDIX: Not identified. PELVIS: An IUD is present in the uterus. No pelvic masses or fluid collections. Urinary bladder is normal. ABDOMINAL WALL: A small umbilical hernia contains only fat. BONES: No significant or acute findings. OTHER: No other significant finding. IMPRESSION: No acute findings in the abdomen or pelvis. No evidence of metastases. Small umbilical hernia contains only fat. TECHNICAL DOCUMENTATION: JOB ID: [id number] Quality ID # [id number]: Final reports with documentation of one or more dose reduction techniques (e.g., Au tomated exposure control, adjustment of the mA and/or kV according to patient size, use of iterative reconstruction technique) 2010 [employer]- All Rights Reserved Reading location - IP/workstation name: [email or web address]
== END ==
LOC: RAD 16:39
PROVIDERS: ATTEND Family Medicine
DX: C50.912 Malignant neoplasm of unspecified site of left female breast (principal); R91.1 Solitary pulmonary nodule; K42.9 Umbilical hernia without obstruction or gangrene; Z97.5 Presence of (intrauterine) contraceptive device
CPT/HCPCS: 71260; 74177

== ENCOUNTER 2018-05-19 08:15 | Emergency (ER) | payer MEDICAID, OTHER ==
[2018-05-19] MEDS ORDERED: NORMAL SALINE 1000 ML 1,000 ML IV ONE ×3 (08:24→15:59)
[2018-05-19 08:42] LABS: INTERNATIONAL RATION (INR) 1.57; PROTHROMBIN TIME 19.5 SEC (11.4-15.4)
[2018-05-19 08:44] LABS: HEMATOCRIT 41.1 % (36.0-47.0); HEMOGLOBIN 14.1 g/dL (12.0-15.5); MEAN CORPUSCULAR HEMOGLOBIN 31.9 pg (27.0-33.4); MEAN CORPUSCULAR HGB CONC 34.2 g/dL (32.0-36.0); MEAN CORPUSCULAR VOLUME 93 fl (80-97); PLATELET COUNT 151 10^3/uL (150-450); WHITE BLOOD COUNT 16.5 10^3/uL (4.0-10.5)
--- NOTE | 2018-05-19 08:52 | RADIOLOGY REPORT (SQ) ---
EXAM DESCRIPTION: CHEST SINGLE VIEW COMPLETED DATE/TIME: 05/19/2018 8:44 am REASON FOR STUDY: fever COMPARISON: 07/06/2011. EXAM PARAMETERS: NUMBER OF VIEWS: One view. TECHNIQUE: Single frontal radiographic view of the chest acquired. RADIATION DOSE: NA LIMITATIONS: None. FINDINGS: LUNGS AND PLEURA: No opacities, masses or pneumothorax. No pleural effusion. MEDIASTINUM AND HILAR STRUCTURES: No masses. Contour normal. HEART AND VASCULAR STRUCTURES: Heart upper limits of normal in size. Normal vasculature. BONES: No acute findings. HARDWARE: None in the chest. OTHER: No other significant finding. IMPRESSION: NO ACUTE RADIOGRAPHIC FINDING IN THE CHEST. TECHNICAL DOCUMENTATION: JOB ID: [id number] [employer]- All Rights Reserved Reading location - IP/workstation name: [email or web address]
[2018-05-19 09:07] LABS: ABSOLUTE LYMPHOCYTES# (MANUAL) 1.2 10^3/uL (0.5-4.7); ABSOLUTE MONOCYTES # (MANUAL) 0.8 10^3/uL (0.1-1.4); ABSOLUTE NEUTROPHILS# (MANUAL) 14.5 10^3/uL (1.7-8.2); BASOPHILS % (MANUAL) 0 % (0-2); EOSINOPHILS % (MANUAL) 0 % (0-6); LYMPHOCYTES % (MANUAL) 7 % (13-45); MONOCYTES % (MANUAL) 5 % (3-13); SEGMENTED NEUTROPHILS % (MAN) 88 % (42-78); TOTAL CELLS COUNTED 100
[2018-05-19 09:09] LABS: PLATELET COMMENT ADEQUATE; PLATELET GIANT PRESENT; TOXIC GRANULATION SLIGHT; TOXIC VACUOLATION PRESENT
[2018-05-19] MEDS ORDERED: VANCOMYCIN HCL INJ 1000 MG VIAL IV ONE (09:42)
[2018-05-19 09:43] LABS: ALBUMIN 4.5 g/dL (3.5-5.0); ALKALINE PHOSPHATASE 57 U/L (38-126); ANION GAP 13 (5-19); BILIRUBIN,DIRECT 0.4 mg/dL (0.0-0.4); BILIRUBIN,TOTAL 0.7 mg/dL (0.2-1.3); BLOOD UREA NITROGEN 22 mg/dL (7-20); CALCIUM 8.9 mg/dL (8.4-10.2); CARBON DIOXIDE 29 mmol/L (22-30); CHLORIDE 99 mmol/L (98-107); GLUCOSE 113 mg/dL (75-110); POTASSIUM 5.1 mmol/L (3.6-5.0); SODIUM 140.7 mmol/L (137-145)
[2018-05-19] MEDS ORDERED: GENTAMICIN SULFATE/PF INJ 20 MG/2 ML VIAL IV SCH (09:45)
[2018-05-19 09:55] LABS: ASPARTATE AMINO TRANSFERASE 2641 U/L (14-36)
[2018-05-19 10:24] LABS: VENOUS BLOOD BASE EXCESS -1.4 mmol/L; VENOUS BLOOD HCO3 24.8 mmol/L (20-32); VENOUS BLOOD PCO2 47.7 mmHg (35-63); VENOUS BLOOD PH 7.33 (7.30-7.42)
[2018-05-19] MEDS ORDERED: GENTAMICIN SULFATE INJ 80 MG/2 ML VIAL IV ONE (11:00)
[2018-05-19 11:01] LABS: ACETAMINOPHEN < 10 ug/mL (10-30); SALICYLATE < 1.0 mg/dL (2.0-20.0)
[2018-05-19 12:37] LABS: ALANINE AMINOTRANSFERASE 2457 U/L (9-52); ASPARTATE AMINO TRANSFERASE 2412 U/L (14-36)
[2018-05-19 12:53] LABS: ALBUMIN 3.2 g/dL (3.5-5.0); ALKALINE PHOSPHATASE 43 U/L (38-126); BILIRUBIN,DIRECT 0.3 mg/dL (0.0-0.4); BILIRUBIN,TOTAL 0.5 mg/dL (0.2-1.3); TOTAL PROTEIN 6.1 g/dL (6.3-8.2)
[2018-05-19 13:19] LABS: ALANINE AMINOTRANSFERASE 2432 U/L (9-52); ASPARTATE AMINO TRANSFERASE 2413 U/L (14-36)
[2018-05-19 13:23] LABS: AMORPHOUS SEDIMENT,URINE TRACE /HPF; APPEARANCE,URINE CLOUDY; BILIRUBIN,URINE NEGATIVE (NEGATIVE); COLOR,URINE AMBER; GLUCOSE, URINE NEGATIVE (NEGATIVE); KETONES,URINE NEGATIVE (NEGATIVE); LEUKOCYTE ESTERASE,URINE NEGATIVE (NEGATIVE); NITRITE,URINE NEGATIVE (NEGATIVE); PROTEIN,URINE 100 mg/dL (NEGATIVE); URINE SPECIFIC GRAVITY 1.016; UROBILINOGEN,URINE NEGATIVE mg/dL (<2.0)
[2018-05-19 13:33] LABS: URINE AMPHETAMINES SCREEN NEGATIVE; URINE BARBITURATES SCREEN NEGATIVE; URINE BENZODIAZEPINES SCREEN NEGATIVE; URINE COCAINE SCREEN NEGATIVE; URINE MARIJUANA (THC) SCREEN NEGATIVE; URINE METHADONE SCREEN NEGATIVE; URINE PHENCYCLIDINE SCREEN NEGATIVE
--- NOTE | 2018-05-19 15:51 | ER Document Report ---
ED Dizziness/Weakness - General Chief Complaint: Altered Mental Status Stated Complaint: ALTERED MENTAL STATUS Time Seen by Provider: 05/19/18 08:22 Mode of Arrival: Medic Information source: Emergency Med Personnel TRAVEL OUTSIDE OF THE [place] IN LAST 30 DAYS: No - HPI Patient complains to provider of: Other - This is a 37-year-old female presented for evaluation of altered mental status as well as fevers and confusion in the setting of a possible overdose, her attempted to wake her up this morning at which time she was difficult to arouse he subsequently called for help on arrival EMS noted that she had pinpoint pupils was somnolent with a low respiratory rate was given 0.5 mg of Narcan and subsequently did have a response with improvement in her respiratory rate thereafter and her mental status. Rest of history is limited secondary to this patient's confused status. - Related Data Allergies/Adverse Reactions: codeine [Codeine] Allergy (Verified 05/19/18 08:42) Past Medical History - General Information source: Patient, Relative, Emergency Med Personnel, Outside Facility Records Cannot obtain history due to: Intoxicated, Uncooperative, Altered mental status - Social History Smoking Status: Unknown if Ever Smoked Family History: Reviewed & Not Pertinent, Other Patient has suicidal ideation: No Patient has homicidal ideation: No Pulmonary Medical History: Reports: Hx Asthma Neurological Medical History: Denies: Hx Cerebrovascular Accident Renal/ Medical History: Denies: Hx Peritoneal Dialysis GI Medical History: Reports: Hx Cirrhosis, Hx Hepatitis - CComment Only: Hx Ulcer - hepatits c Musculoskeletal Medical History: Reports Hx Arthritis, Reports Hx Musculoskeletal Deformity Psychiatric Medical History: Reports: Hx Anxiety, Hx Depression Traumatic Medical History: Reports: Hx Fractures - right forearm Infectious Medical History: Reports: Hx Hepatitis - C Past Surgical History: Reports: Hx Section, Hx Dilation and Curettage, Hx Orthopedic Surgery - BL LEs, Hx Tonsillectomy - Immunizations Hx Diphtheria, Pertussis, Tetanus Vaccination: No Review of Systems - Review of Systems -: Yes All other systems reviewed and negative Physical Exam - Vital signs Vitals: Resp Pulse Ox 16 97 05/19/18 08:20 05/19/18 08:20 - General General appearance: Lethargic In distress: Moderate - HEENT Head: Normocephalic Eyes: Normal Conjunctiva: Normal Cornea: Normal Extraocular movements intact: Yes Eyelashes: Normal Pupils: PERRL - Respiratory Respiratory status: Tachypnea Chest status: Nontender Breath sounds: Normal, Rhonchi Chest palpation: Normal - Cardiovascular Rhythm: Regular Heart sounds: Normal auscultation Murmur: No - Abdominal Inspection: Normal Distension: No distension Tenderness: Nontender - Back Back: Normal - Extremities General upper extremity: Normal inspection, Nontender, Normal strength, Normal temperature General lower extremity: Normal inspection, Nontender, Normal strength, Normal temperature - Neurological Neuro grossly intact: Yes Cognition: Confused, Inattentive Orientation: AAOx4 [place] Coma Scale Eye Opening: To Voice [place] Coma Scale Verbal: Confused [place] Coma Scale Motor: Obeys Commands Bj Coma Scale Total: 13 Speech: Normal Cranial nerves: Normal Cerebellar coordination: Normal Motor strength normal: LUE, RUE, LLE, RLE 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 On examination she responded to Narcan. She is moving everything appropriately but is confused. She is febrile, tachycardic, has an obvious leukocytosis, does not have a demonstrable murmur on examination though she has had a valve repair in the past she relays. Her notes that that must have been before he was ever in the picture because he did not know that. She was previously incarcerated and subsequently was let home in the last few days. Friends are uncertain whether or not she has been using IV drugs or not. She endorses having used IV drugs recently. Given that she is tachycardic febrile has a history of endocarditis in the past and has been using IV drugs will plan for 3-week blood cultures, administration of vancomycin and gentamicin, will plan for this patient to undergo chest x-ray as well as broad workup for possible sepsis with administration of 2 L of normal saline. Administration of normal saline improve the patient's blood pressure as well as her heart rate. Her chest x-ray did not demonstrate any obvious demonstrable infiltrates or septic emboli though I think this is still high on the differential. Her urinalysis is unremarkable. Given her abdominal examination is benign I believe this likely represents that this patient has developed a possible recurrent endocarditis. It is also notable that her LFTs are markedly elevated today in the setting of having drank a lot of alcohol. Because her LFTs are markedly elevated I plan to obtain a acetaminophen level as well as an aspirin level. Tylenol level was 0. LFTs were repeated and again demonstrated a market elevation in all transaminases. Have contacted [facility] for evaluation of this patient in consideration of endocarditis given that we lack cardiac surgery at this center. I spoke to their hospitalist Dr. Robert Felton who agrees to accept this patient in transfer to their stepdown service for admission. We will plan for administration of a maintenance rate repeated doses of medications as needed. Continue to monitor in emergency department until she is able to be transferred. Patient CARE was signed out to Dr. Saenz pending this patient's transport [facility]. At that time she was hemodynamically stable and improved from her initial presentation. - Vital Signs Vital signs: Temp Pulse Resp BP Pulse Ox 22 H 108/73 98 05/19/18 16:01 05/19/18 16:01 05/19/18 16:01 - Laboratory Result Diagrams: 05/19/18 08:18 05/19/18 08:18 Laboratory results interpreted by me: 05/19/18 05/19/18 05/19/18 08:18 08:18 08:18 WBC 16.5 H Seg Neuts % (Manual) 88 H Lymphocytes % (Manual) 7 L Abs Neuts (Manual) 14.5 H PT 19.5 H Potassium 5.1 H BUN 22 H Creatinine 1.27 H Est GFR ( Amer) 58 L Est GFR (Non-Af Amer) 48 L Glucose 113 H POC Glucose AST 2641 H ALT Total Protein Albumin Urine Protein Urine Blood Salicylates Acetaminophen 05/19/18 05/19/18 05/19/18 08:18 09:29 10:05 WBC Seg Neuts % (Manual) Lymphocytes % (Manual) Abs Neuts (Manual) PT Potassium BUN Creatinine Est GFR ( Amer) Est GFR (Non-Af Amer) Glucose POC Glucose 113 H AST 2412 H ALT 2457 H Total Protein Albumin Urine Protein Urine Blood Salicylates < 1.0 L Acetaminophen < 10 L 05/19/18 05/19/18 10:05 12:56 WBC Seg Neuts % (Manual) Lymphocytes % (Manual) Abs Neuts (Manual) PT Potassium BUN Creatinine Est GFR ( Amer) Est GFR (Non-Af Amer) Glucose POC Glucose AST 2413 H ALT 2432 H Total Protein 6.1 L Albumin 3.2 L Urine Protein 100 H Urine Blood LARGE H Salicylates Acetaminophen Discharge - Discharge Clinical Impression: IV drug abuse Sepsis Qualifiers: Sepsis type: sepsis due to unspecified organism Qualified Code(s): A41.9 - Sepsis, unspecified organism Endocarditis Qualifiers: Endocarditis type: unspecified Chronicity: acute Qualified Code(s): I33.9 - Acute and subacute endocarditis, unspecified Condition: Stable Disposition: [facility] Referrals: GENO VORA MD [Primary Care Provider] - Follow up as needed
--- NOTE | 2018-05-19 22:02 | EKG REPORT ---
SEVERITY:- OTHERWISE NORMAL ECG - SINUS TACHYCARDIA : Confirmed by: Elvia Joseph MD 19-May-2018 22:02:01
[2018-05-20] MEDS ORDERED: KETOROLAC TROMETHAMINE INJ/PF 30 MG/1 ML SDV IV ONE ×2 (04:33→19:45)
[2018-05-20] MEDS ORDERED: VANCOMYCIN HCL INJ 1000 MG VIAL IV SCH ×2 (06:30→08:30)
[2018-05-20] MEDS ORDERED: NORMAL SALINE 1000 ML 1,000 ML IV PRN (08:24)
[2018-05-20 08:28] LABS: ABSOLUTE MONOCYTES (AUTO) 0.4 10^3/uL (0.1-1.4); ABSOLUTE NEUT (AUTO) 6.2 10^3/uL (1.7-8.2); BASOPHILS % (AUTO) 0.3 % (0-2); EOSINOPHILS % (AUTO) 0.1 % (0-6); HEMOGLOBIN 13.2 g/dL (12.0-15.5); LYMPHOCYTES % (AUTO) 13.6 % (13-45); MEAN CORPUSCULAR HEMOGLOBIN 32.8 pg (27.0-33.4); MEAN CORPUSCULAR HGB CONC 35.6 g/dL (32.0-36.0); MEAN CORPUSCULAR VOLUME 92 fl (80-97); MONOCYTES % (AUTO) 5.8 % (3-13); PLATELET COUNT 117 10^3/uL (150-450); RED BLOOD COUNT 4.03 10^6/uL (3.72-5.28); RED CELL DISTRIBUTION WIDTH 13.5 % (11.5-14.0); SEGMENTED NEUTROPHILS % (AUTO) 80.2 % (42-78); TOTAL CELLS COUNTED % (AUTO) 100 %; WHITE BLOOD COUNT 7.7 10^3/uL (4.0-10.5)
[2018-05-20] MEDS ORDERED: VANCOMYCIN HCL INJ 1000 MG VIAL IV ONE (08:32)
[2018-05-20 08:50] LABS: ALKALINE PHOSPHATASE 43 U/L (38-126); ANION GAP 6 (5-19); BILIRUBIN,DIRECT 0.3 mg/dL (0.0-0.4); BILIRUBIN,TOTAL 0.8 mg/dL (0.2-1.3); BLOOD UREA NITROGEN 21 mg/dL (7-20); CALCIUM 8.3 mg/dL (8.4-10.2); CARBON DIOXIDE 27 mmol/L (22-30); CHLORIDE 106 mmol/L (98-107); GLUCOSE 83 mg/dL (75-110); POTASSIUM 4.4 mmol/L (3.6-5.0); SODIUM 138.8 mmol/L (137-145); TOTAL PROTEIN 5.9 g/dL (6.3-8.2)
[2018-05-20 08:51] LABS: VANCOMYCIN,TROUGH < 5.0 ug/mL (5.0-20.0)
[2018-05-20 09:15] LABS: ALANINE AMINOTRANSFERASE 3024 U/L (9-52); ASPARTATE AMINO TRANSFERASE 2931 U/L (14-36)
[2018-05-20] MEDS ORDERED: GENTAMICIN SULFATE 100 MG in DEXTROSE 5%-WATER 100 ML IV SCH (10:00)
[2018-05-20 10:01] LABS: INTERNATIONAL RATION (INR) 1.48; PROTHROMBIN TIME 18.7 SEC (11.4-15.4)
[2018-05-20 10:32] LABS: ALANINE AMINOTRANSFERASE 2905 U/L (9-52)
[2018-05-20] MEDS ORDERED: GENTAMICIN SULFATE 70 MG in DEXTROSE 5%-WATER 100 ML IV SCH (14:00)
--- NOTE | 2018-05-20 16:56 | ER Document Report ---
Doctor's Note Notes: On reassessment of the patient this morning her mental status is improved remarkably, she does note that she did have some variety of cardiac intervention previously but is uncertain what it was as this happened approximately 18 years prior. Your liver function tests are markedly elevated as such we will recheck. She does note that she has a history of cirrhosis in the past however I believe this patient's elevated liver function tests are probably a result of a transient level of hypotension while she was unresponsive yesterday morning requiring Narcan to wake up and administration of fluids and broad-spectrum antibiotics to improve her hemodynamics. She is received gentamicin as well as vancomycin while awaiting blood culture growth results. She continues to await placement at [facility] for ongoing management of her presumptive endocarditis diagnosis. She is hemodynamically stable at this time eating and drinking appropriately and appears well overall.
[2018-05-20 19:37] VITALS: BP 121/82
[2018-05-20] MEDS ORDERED: VANCOMYCIN HCL 750 MG in DEXTROSE 5%-WATER 250 ML IV SCH (22:00)
== END 2018-05-20 21:21 | disposition short-term general hospital (02) ==
LOC: ER 08:15
DX: A41.9 Sepsis, unspecified organism (principal); I33.9 Acute and subacute endocarditis, unspecified; F19.10 Other psychoactive substance abuse, uncomplicated; F10.129 Alcohol abuse with intoxication, unspecified; J45.909 Unspecified asthma, uncomplicated; R53.83 Other fatigue; Z88.5 Allergy status to narcotic agent
CPT/HCPCS: 93005; 96376; 99285; 96361; 96375; 96365; 96366; 96367; 36415; 87040; 87086; 82962; 82140; 80307 ×3; 84703; 85025; 85652; 85610; 85730; 86140; 80076; 80048; 80053; 81001; 80202; 82803; 83605; 71045; 93010; L3908 ×2; J1580 ×2; J1885; J7030 ×2; J3370 ×2; 84450; 84460

== ENCOUNTER → 2018-05-24 | Outpatient (CLI) | payer MEDICAID ==
--- NOTE | 2018-05-24 16:43 | XCELERA REPORT ---
[address] [facility] [address] Lower Extremity Venous Evaluation Procedure: Color flow and duplex imaging of the veins of the right lower extremity as well as the left Common Femoral vein. Right Sided Venous Evaluation Normal vessel filling wall to wall, compression and augmentation as well as Colour flow down to the infrageniculate veins. Left Sided Venous Evaluation The left common femoral vein is fully compressible. Spontaneous and phasic flow is present in the left common femoral vein. Interpretation Summary No duplex evidence of DVT or obstruction in the right lower extremity nor in the left Common Femoral vein. Name: KEATON SOLIS Kelle Age: 37 yrs Gender: Female : 1980 Patient Status: Outpatient Patient Location: Study Date: 05/24/2018 03:25 PM Reason For Study: RLE PAIN AND SWELLING Ordering Physician: ISAAC ALATORRE Performed By: Jacob Mathias : ISAAC ALATORRE > Main [place]
--- NOTE | 2018-05-24 18:00 | RADIOLOGY REPORT (SQ) ---
EXAM DESCRIPTION: CTA ABDOMEN/PELVIS W WO COMPLETED DATE/TIME: 05/24/2018 5:17 pm REASON FOR STUDY: PAIN IN UNSPEC LIMB,OTHER UNSPEC PAIN M79.609 PAIN IN UNSPECIFIED LIMB M79.89 OT HER SPECIFIED SOFT TISSUE DISORDERS COMPARISON: 04/23/2018 and 08/14/2007. TECHNIQUE: CT scan of the abdomen and pelvis performed with and without intravenous contrast using h elical scanning technique with dynamic intravenous contrast injection. Images reviewed with lung, sof t tissue, and bone windows. Reconstructed coronal and sagittal MPR images reviewed. All images stored on PACS. Advanced 3D imaging as volume rendering, MIPS, SSD performed? yes All CT scanners at this facility use dose modulation, iterative reconstruction, and/or weight based d osing when appropriate to reduce radiation dose to as low as reasonably achievable (ALARA). [facility]: Dose Right [facility]: CareDose [facility]: Dose Right [facility]: Teradose 4D [facility]: Foodem CONTRAST TYPE AND DOSE: contrast/concentration: Isovue 350.00 mg/ml; Total Contrast Delivered: 100.0 ml; Total Saline Delivered: 90.0 ml RENAL FUNCTION: None required. The patient is less than 50 years old. LIMITATIONS: None. FINDINGS: NON-CONTRASTED IMAGING: No significant renal or bladder calcifications. No other significa nt organ calcifications. POST-CONTRAST IMAGING: AORTA AND VESSELS: No aneurysm. No dissection. Renal arteries, SMA, celiac without stenosis. LUNG BASES: No significant findings. No nodules or infiltrates. LIVER: Normal size. No masses or dilated ducts. SPLEEN: Normal size. No focal lesions. PANCREAS: No masses. No significant calcifications. No adjacent inflammation or peripancreatic fluid collections. Pancreatic duct not dilated. GALLBLADDER: No identified stones by CT criteria. No inflammatory changes to suggest cholecystitis. ADRENAL GLANDS: No significant masses or asymmetry. RIGHT KIDNEY AND URETER: No mass, calculi or urinary tract obstruction. LEFT KIDNEY AND URETER: No mass, calculi or urinary tract obstruction. RETROPERITONEUM: No retroperitoneal adenopathy, hemorrhage or masses. BOWEL AND PERITONEAL CAVITY: No masses or inflammatory changes. No free fluid or peritoneal masses. APPENDIX: Normal. ABDOMINAL WALL: No masses. No hernias. BONY STRUCTURES: No significant or acute findings. Stable sclerotic lesion in the right pubic bone n ear the pubic symphysis. 3-D IMAGING: Confirms the above findings. OTHER: IUD in the pelvis. Small amount of free fluid in the pelvis. Edematous appearance of the sub cutaneous fatty tissues especially in the lower abdomen extending into the upper legs. IMPRESSION: 1. NO ABDOMINAL AORTIC ANEURYSM, DISSECTION, VASCULAR OCCLUSION, OR SIGNIFICANT STENOSIS. 2. EDEMATOUS APPEARANCE OF THE SUBCUTANEOUS FATTY TISSUES OF THE LOWER BODY EXTENDING INTO THE UPPER LEGS. 3. SMALL AMOUNT OF FREE FLUID IN THE PELVIS. ETIOLOGY NOT READILY APPARENT. TECHNICAL DOCUMENTATION: JOB ID: [id number] Quality ID # [id number]: Final reports with documentation of one or more dose reduction techniques (e.g., Au tomated exposure control, adjustment of the mA and/or kV according to patient size, use of iterative reconstruction technique) 2010 [employer]- All Rights Reserved Reading location - IP/workstation name: [email or web address]
== END ==
LOC: SP 14:47
PROVIDERS: ATTEND Internal Medicine Hematology & Oncology
DX: M79.661 Pain in right lower leg (principal); M79.89 Other specified soft tissue disorders
CPT/HCPCS: 74174; 93971

== ENCOUNTER 2018-05-30 10:45 | Day surgery (SDC) | payer MEDICAID, OTHER ==
[2018-05-28 11:34] LABS: HEMATOCRIT 33.1 % (36.0-47.0); HEMOGLOBIN 11.7 g/dL (12.0-15.5); MEAN CORPUSCULAR HEMOGLOBIN 32.6 pg (27.0-33.4); MEAN CORPUSCULAR HGB CONC 35.2 g/dL (32.0-36.0); MEAN CORPUSCULAR VOLUME 93 fl (80-97); PLATELET COUNT 152 10^3/uL (150-450); RED BLOOD COUNT 3.58 10^6/uL (3.72-5.28); RED CELL DISTRIBUTION WIDTH 13.6 % (11.5-14.0); WHITE BLOOD COUNT 6.2 10^3/uL (4.0-10.5)
[2018-05-28 14:14] LABS: ANION GAP 11 (5-19); BLOOD UREA NITROGEN 18 mg/dL (7-20); CALCIUM 8.9 mg/dL (8.4-10.2); CARBON DIOXIDE 22 mmol/L (22-30); CHLORIDE 107 mmol/L (98-107); GLUCOSE 95 mg/dL (75-110); POTASSIUM 4.2 mmol/L (3.6-5.0); SODIUM 139.9 mmol/L (137-145)
[~2018-05-30 10:45] MED LIST: ACETAMINOPHEN 325 MG TABLET PO PRN; CEFAZOLIN 1 GM/D5W RTU 1 GM/50 ML RTUPB IV ONE; CEFAZOLIN 1 GM/D5W RTU 1 GM/50 ML RTUPB IV PRN; LACTATED RINGERS 1000 ML IV PRN; LIDOCAINE 0.5% INJ-PF (5 MG/ML) 50 ML SDV SUBCUT PRN; LIDOCAINE 4% TRANSPARENT DRESSING 5 GM KIT ONE; LIDOCAINE 4% TRANSPARENT DRESSING 5 GM KIT TP PRN
--- NOTE | 2018-05-30 13:02 | RADIOLOGY REPORT (SQ) ---
EXAM DESCRIPTION: NM LYMPHATICS/LYMPH GLANDS COMPLETED DATE/TIME: 05/30/2018 12:47 pm REASON FOR STUDY: MALIGNANT NEOPLASM OF UNSPECIFIED SITE OF LEFT FEMALE BREAST N63.20 UNSPECIFIED L UMP IN THE LEFT BREAST, UNSPECIFIED QUAD COMPARISON: None. RADIONUCLIDE AND DOSE: 561 microcuries TC-99m tilmanocept - Lymphoseek. The route of agent administration: Subcutaneous in the skin. TECHNIQUE: The skin of the left breast was prepped in sterile fashion. The radiopharmaceutical was administered in equally divided doses in the periareolar breast. LIMITATIONS: None. FINDINGS: Images demonstrate activity at the injection site. IMPRESSION: ADMINISTRATION OF RADIOPHARMACEUTICAL FOR SENTINEL LYMPH NODE EVALUATION. TECHNICAL DOCUMENTATION: JOB ID: [id number] [employer]- All Rights Reserved Reading location - IP/workstation name: [email or web address]
[2018-05-30] MEDS ORDERED: SUCCINYLCHOLINE CHLORIDE INJ 200 MG/10 ML VIAL ONE (13:51)
[2018-05-30] MEDS ORDERED: FENTANYL CITRATE INJ/PF 250 MCG/5 ML AMPULE ONE ×2 (14:06→15:08)
[2018-05-30] MEDS ORDERED: HYDROMORPHONE HCL INJ/PF 2 MG/ML AMPULE ONE ×2 (14:06→15:09)
[2018-05-30] MEDS ORDERED: PROPOFOL INJ 200 MG/20 ML VIAL IV ONE (14:07)
[2018-05-30] MEDS ORDERED: ACETAMINOPHEN 0 MG/0 ML RTUPB IV ONE (14:07)
[2018-05-30] MEDS ORDERED: MIDAZOLAM 2 MG/2 ML INJ ONE (14:07)
[2018-05-30] MEDS ORDERED: DEXAMETHASONE SOD PHOSPHATE INJ 4 MG/1 ML VIAL ONE (14:07)
[2018-05-30] MEDS ORDERED: ONDANSETRON HCL INJ/PF 4 MG/2 ML SDV ONE (14:07)
[2018-05-30] MEDS ORDERED: MICROFIBRILLAR COLLAGEN 1 GM PACK ONE (14:08)
[2018-05-30] MEDS ORDERED: METHYLENE BLUE 50 MG/10 ML AMPULE ONE (14:09)
[2018-05-30] MEDS ORDERED: LIDOCAINE 1%/EPINEPHRINE INJ 20 ML VIAL ONE (14:09)
[2018-05-30] MEDS ORDERED: DIPHENHYDRAMINE HCL 50 MG/ML VIAL IV PRN (15:30)
[2018-05-30] MEDS ORDERED: FENTANYL CITRATE INJ/PF 100 MCG/2 ML AMPUL IV PRN ×3 (15:30)
[2018-05-30] MEDS ORDERED: PROMETHAZINE HCL INJ 25 MG/1 ML VIAL IV PRN ×2 (15:30)
[2018-05-30] MEDS ORDERED: MEPERIDINE HCL/PF INJ 25 MG/1 ML DISP.SYRIN IV PRN (15:30)
--- NOTE | 2018-05-30 15:38 | Operative Report ---
Operative Report DATE OF SURGERY: 05/30/18 PREOPERATIVE DIAGNOSIS: Invasive lobular carcinoma left breast. History of hepatitis C POSTOPERATIVE DIAGNOSIS: Same OPERATION: 1. Left mastectomy. 2. Brinson lymph node biopsy x2 left axilla. 3. Closure of chest wall over drain SURGEON: JULIANNE COYNE 1ST CREDIT REFERENCE CLERK: MONICA MANRIQUE ANESTHESIA: GA TISSUE REMOVED OR ALTERED: Left breast; sentinel lymph nodes x2 COMPLICATIONS: None ESTIMATED BLOOD LOSS: 20 cc INTRAOPERATIVE FINDINGS: See below PROCEDURE: Patient was taken to the preop holding her to the main operating room. Left arm was abducted, left breast and axilla exposed. The left breast periareolar tissue at the 2 o'clock position was injected with 2 -1/2 cc of methylene blue, full-strength in the dermal space with a 25-gauge needle. The breast was massaged, then prepped and draped in a sterile fashion along with the axilla. Surgical plan surgical timeout were conducted. A generous elliptical marking was made on the left breast in anticipation of a mastectomy to encompass the large breast tumor in the tail of [place] region. The skin was anesthetized with quarter percent Marcaine. The ellipse was then cut into the skin with a #10 blade. Superior inferior skin flaps were raised. The level of the dissection is taken to the infra clavicular area superiorly, latissimus dorsi muscle laterally, and the parasternal tissue medially. The breast was taken off of the chest wall uneventfully. This included the pectoralis fascia. All of [place] was elevated up off the chest wall towards the axilla. 2 sentinel lymph nodes were harvested 1 hot and blue at 2551 in vivo count and an ex vivo count of 2760; the second sentinel node was hot and blue with an in vivo count of 8035 and ex vivo count of 8380. Both of these nodes were in the low axilla consistent with level 1. The harvest sites were consistent with the preoperative lymphoscintigraphy. Background counts were negligible. The breasts specimen was sent in a separate container with a short suture in the superior position long suture the lateral position. A large Augustine drain was placed in the inferior skin flap, wound closed with 2-0 Vicryl Dermabond glue. Appropriate dressings applied. Patient tolerated procedure well, extubated, taken recovery in stable condition. The physician carpenter's assistant, Ms. Malik, provided assistance during this case by: Assisting with retracting tissue, instillation of local anesthesia and closure of skin incisions.
[2018-05-30] MEDS ORDERED: OXYCODONE-ACETAMINOPHEN 5-325 MG TABLET PO PRN (15:39)
[2018-05-30] MEDS ORDERED: KETOROLAC TROMETHAMINE 10 MG TABLET PO PRN (15:39)
[2018-05-30] MEDS ORDERED: MORPHINE SULFATE 10 MG/ML INJ IV PRN (15:39)
[2018-05-30] MEDS ORDERED: ONDANSETRON HCL INJ/PF 4 MG/2 ML SDV IV PRN (15:39)
--- NOTE | 2018-05-30 15:39 | Discharge Summary ---
Discharge Summary (SDC) - Discharge Final Diagnosis: Invasive lobular carcinoma left breast Date of Surgery: 05/30/18 Discharge Date: 05/30/18 Condition: Good Treatment or Instructions: May resume preoperative medications diet and activity. Prescription provided on chart; teach drain emptying and general care; follow-up with [facility] in 1 week. May shower. Referrals: GENO VOAR MD [Primary Care Provider] - Discharge Diet: As Tolerated Discharge Activity: Activity As Tolerated, No Lifting Over 10 Pounds, No Lifting /Push/Pulling Home Care Assistance: None Needed Report the Following to Your Physician Immediately: Shortness of Breath, Increase in Pain, Fever over 101 Degrees
[2018-05-30] MEDS ORDERED: MORPHINE SULFATE 10 MG/ML INJ ONE (16:27)
[2018-05-30] MEDS ORDERED: KETOROLAC TROMETHAMINE 10 MG TABLET ONE (17:07)
[2018-05-30 18:38] VITALS: BP 125/79
== END 2018-05-30 18:20 | disposition home or self-care (01) ==
LOC: OROUT 10:45
PROVIDERS: ATTEND Surgery
DX: C50.812 Malignant neoplasm of overlapping sites of left female breast (principal); C77.3 Secondary and unspecified malignant neoplasm of axilla and upper limb lymph nodes; Z17.0 Estrogen receptor positive status [ER+]; B18.2 Chronic viral hepatitis C; K74.60 Unspecified cirrhosis of liver; F17.210 Nicotine dependence, cigarettes, uncomplicated; R01.1 Cardiac murmur, unspecified; Z80.41 Family history of malignant neoplasm of ovary; Z79.899 Other long term (current) drug therapy
CPT/HCPCS: 36415; 85027; 81025; 80048; 88305 ×2; 88309 ×2; 78195; 19307; A9520; J2250; J0690; J1100; J3010; J3490 ×3; J2270; J1170; J0330; J2405; J2704; Q9968; 1610; J0131

== ENCOUNTER 2018-06-13 13:12 | Observation (INO) | payer MEDICAID ==
[~2018-06-13 13:12] MED LIST changes: +ACETAMINOPHEN 0 MG/0 ML RTUPB IV ONE; -ACETAMINOPHEN 325 MG TABLET PO PRN; -CEFAZOLIN 1 GM/D5W RTU 1 GM/50 ML RTUPB IV ONE; +FENTANYL CITRATE INJ/PF 100 MCG/2 ML AMPUL ONE; +HYDROMORPHONE HCL INJ/PF 2 MG/ML AMPULE ONE; -LACTATED RINGERS 1000 ML IV PRN; -LIDOCAINE 0.5% INJ-PF (5 MG/ML) 50 ML SDV SUBCUT PRN; +LIDOCAINE 2% INJ-PF (20 MG/ML) 10 ML AMPUL ONE; -LIDOCAINE 4% TRANSPARENT DRESSING 5 GM KIT ONE; -LIDOCAINE 4% TRANSPARENT DRESSING 5 GM KIT TP PRN; +MIDAZOLAM 2 MG/2 ML INJ ONE; +ONDANSETRON HCL INJ/PF 4 MG/2 ML SDV ONE; +PROPOFOL INJ 200 MG/20 ML VIAL IV ONE
[2018-06-13 13:55] LABS: HEMATOCRIT 30.3 % (36.0-47.0); HEMOGLOBIN 10.7 g/dL (12.0-15.5); MEAN CORPUSCULAR HEMOGLOBIN 33.6 pg (27.0-33.4); MEAN CORPUSCULAR HGB CONC 35.2 g/dL (32.0-36.0); MEAN CORPUSCULAR VOLUME 95 fl (80-97); PLATELET COUNT 164 10^3/uL (150-450); RED BLOOD COUNT 3.18 10^6/uL (3.72-5.28); RED CELL DISTRIBUTION WIDTH 13.8 % (11.5-14.0); WHITE BLOOD COUNT 4.3 10^3/uL (4.0-10.5)
[2018-06-13] MEDS ORDERED: CEFAZOLIN 1 GM/D5W RTU 1 GM/50 ML RTUPB IV ONE (13:58)
[2018-06-13] MEDS ORDERED: LIDOCAINE 1%/EPINEPHRINE INJ 20 ML VIAL ONE (14:50)
[2018-06-13] MEDS ORDERED: MICROFIBRILLAR COLLAGEN 1 GM PACK ONE (14:50)
[2018-06-13] MEDS ORDERED: DEXAMETHASONE SOD PHOSPHATE INJ 4 MG/1 ML VIAL ONE (14:57)
[2018-06-13] MEDS ORDERED: SUCCINYLCHOLINE CHLORIDE INJ 200 MG/10 ML VIAL ONE (14:57)
[2018-06-13] MEDS ORDERED: KETOROLAC TROMETHAMINE 60 MG/2 ML SDV ONE (14:57)
[2018-06-13] MEDS ORDERED: PROMETHAZINE HCL INJ 25 MG/1 ML VIAL IV PRN ×2 (15:32)
[2018-06-13] MEDS ORDERED: FENTANYL CITRATE INJ/PF 100 MCG/2 ML AMPUL IV PRN ×3 (15:32)
[2018-06-13] MEDS ORDERED: MEPERIDINE HCL/PF INJ 25 MG/1 ML DISP.SYRIN IV PRN (15:32)
[2018-06-13] MEDS ORDERED: MORPHINE SULFATE 10 MG/ML INJ IV PRN ×3 (15:32→18:51)
[2018-06-13] MEDS ORDERED: DIPHENHYDRAMINE HCL 50 MG/ML VIAL IV PRN (15:32)
--- NOTE | 2018-06-13 16:19 | RADIOLOGY REPORT (SQ) ---
EXAM DESCRIPTION: FLUORO/CV PLACEMENT COMPLETED DATE/TIME: 06/13/2018 3:55 pm REASON FOR STUDY: RT SIDED PORTACATH C77.3 SEC AND UNSP MALIG NEOPLASM OF AXILLA AND UPPER LIMB N COMPARISON: AP chest 05/19/2018 FLUOROSCOPY TIME: 0.1 minutes 4 digital C-arm images saved to PACS. TECHNIQUE: Intra-operative images acquired during surgical procedure to evaluate progress. NUMBER OF IMAGES: 4 digital C-arm images LIMITATIONS: None. FINDINGS: Intra procedural imaging and fluoro during placement of a right-sided permanent central li ne with the tip in the superior vena cava. Please see the operative report for further details IMPRESSION: Intra procedural imaging and fluoro COMMENT: Quality ID 145: Final reports for procedures using fluoroscopy that document radiation exp osure indices, or exposure time and number of fluorographic images (if radiation exposure indices are not available) Please consult full operative report of the attending physician for description of the procedure. TECHNICAL DOCUMENTATION: JOB ID: [id number] [employer]- All Rights Reserved Reading location - IP/workstation name: [email or web address]
--- NOTE | 2018-06-13 17:50 | Discharge Summary ---
Discharge Summary (SDC) - Discharge Final Diagnosis: Left breast cancer Date of Surgery: 06/13/18 Discharge Date: 06/13/18 Condition: Stable Treatment or Instructions: [facility] [address] [place] [id number] Care Instructions Following Your Axillary Dissection Activities: Resume normal activities when you feel comfortable. It is best to remain as active as possible to speed your recovery. It is common to experience some fatigue after surgery and you may find that short naps are helpful. Avoid strenuous activity such as weight lifting, tennis, etc at your surgical site for two weeks. Perform gentle arm exercises daily and do not favor your operative arm to due increased risk of mobility issues postoperatively. No driving for 7 days after surgery. Do not drive if you are taking pain medication other than Tylenol or Ibuprofen. No swimming, tub baths or soaking in a hot tub for 4 weeks. There are no dietary restrictions. Do not smoke as this impairs wound healing. Surgical Site care: You may shower in 48 hours. Leave skin glue intact, wash the wound with soap and water using your hands. Do not scrub the incision. Pat the area dry with a towel. You do not need to recover the wound although some patients find that they feel more comfortable using a light dressing for a few days to absorb any minimal drainage which may occur. Many patients also find that keeping a dressing around the drain exit site is helpful to absorb any drainage which may leak around the tubing. If you use a dressing in this manner change it at least every day. Do not use heating pad or apply an ice pack to the operative site. You may apply deodorant if you are careful to avoid getting it on the wound itself. Empty the bulbs attached to the drain every 12 hours and measure the fluid output separately from each drain. Please also strip each drain each time you empty it to prevent clogging. Keep a record of the output and bring this record with you each time you come to the office for postoperative care. A drain is ready to be removed when its output is 30 mL per 24 hours per drain for 2 consecutive days. Please call the office to inform our staff that you need to come in for drain removal. Medications: You may take Toradol 10mg one pill by mouth every six hours as needed for pain. You may experience constipation after surgery while taking pain medications. If using a narcotic on a regular basis, take a stool softener such as Colace twice a day. It is helpful to stay hydrated by drinking lots of fluids. Walking is also helpful and is good exercise after surgery. If you need extra help, use Milk of Magnesia according to the directions on the package. Follow-up: Call our office at to make a follow-up appointment in 10-14 days. Your doctor will call to discuss the pathology report with you as soon as it is available. Concerns: If you had a sentinel lymph node biopsy with your mastectomy, your urine may have a greenish discoloration. This is normal and will resolve as the blue dye slowly leaves your system. If you notice significant leakage around the drains , this is not normal. The drains may be clogged. Please call our office to come in immediately for the drains to be checked. Some bruising may occur and will go away over time. If you have a fever of 101.5 or greater, chills, redness at the incision site, excessive drainage from your wound or severe pain not relieved by pain medication, call your doctor. A physician is available 24 hours a day 7 days a week in addition to regular office hours. If problems arise after normal office hours please call the hospital at . Please call if you have any questions or concerns. Prescriptions: Tramadol HCl [Ultram 50 mg Tablet] 50 mg PO ASDIR PRN #20 tablet PRN Reason: Referrals: GENO VORA MD [Primary Care Provider] - Discharge Diet: As Tolerated Discharge Activity: No Lifting/Push/Pulling, Walk Frequently Report the Following to Your Physician Immediately: Increase in Pain, Unusual Bleeding, Redness, Swelling, Warmth, Drainage-Foul Smelling
--- NOTE | 2018-06-13 17:50 | Operative Report ---
Operative Report DATE OF SURGERY: 06/13/18 PREOPERATIVE DIAGNOSIS: Invasive lobular breast carcinoma with left axillary sentinel lymph node metastases status post left mastectomy POSTOPERATIVE DIAGNOSIS: Same OPERATION: 1. Focused ultrasound of the right neck. 2. Insertion of single lumen right subclavian Qebbft-c-Ymqa catheter. 3. Interpretation of intraoperative fluoroscopy. 4. Completion complete left axillary dissection with drain placement SURGEON: JULIANNE COYNE - Past 1ST ORGANIC LAB WORKER: MONICA MANRIQUE ANESTHESIA: GA TISSUE REMOVED OR ALTERED: Completion left axillary contents and fragments COMPLICATIONS: None ESTIMATED BLOOD LOSS: 75 cc INTRAOPERATIVE FINDINGS: See below PROCEDURE: The patient was seen in the preop holding area and taken to the main operating room where general anesthesia was induced. Arms were tucked to the sides, neck and chest wall on the right side prepped and draped sterile fashion. Surgical plan and surgical timeout were conducted. The right neck was scanned with a variable frequency linear transducer. The right internal jugular vein was felt cannulation. Skin was anesthetized with 1 % plain lidocaine. Using Seldinger technique, a micro needle and wire threaded into the right internal jugular vein. A suitable site for placement of the port was chosen in the right subclavian position. The skin was anesthetized with 1% plain lidocaine. A 3 cm horizontal incision was made with the #10 blade, and a port pocket developed large enough to accommodate a single-chamber port. The 9 Kenyan single lumen catheter was then tunneled between the 2 incisions, attached to the port and the port tucked into the pocket after securing the tube to the port with the plastic ring. The micro wire was switched over to a conventional guidewire using the micro- introducer sheath. We then threaded the conventional 9 Kenyan dilator and introducer over the guidewire, guidewire and dilator removed, catheter threaded into the strip away sheath and strip away sheath removed leaving the catheter in good position. By fluoroscopic guidance, the tip of the catheter is in superior vena cava. There is no kinking of the catheter. The catheter was flushed and aspirated with dilute saline solution. Wounds closed with 3-0 Vicryl benzoin and Steri-Strips. We now turned our attention to the left axilla. The left arm was abducted, and the left chest wall and axilla exposed, residual skin glue from the previous mastectomy removed from the chest wall. The left chest wall and axilla were prepped and draped sterile fashion. A repeat timeout was conducted. Skin was anesthetized with 1% plain line again. Approximately 8 cm incision was made in the mid to high axilla in a curvilinear fashion to optimize exposure to the axilla. Skin flaps were raised in a circumferential fashion. Of note there was a significant amount of scar tissue in the lower axilla consistent with previous sentinel lymph node biopsy 3 weeks ago. The dissection was fairly tedious. Eventually we got down to the pectoralis major muscle anteriorly, the latissimus dorsi muscle posteriorly, and the axillary sheath. The Bookwalter retractor system was established and the dissection continued using primarily sharp and minimal electrocautery dissection. Scar tissue and limited axillary fat removed from the axilla again working in a circumferential fashion. The level of the dissection was taken up to and underneath the pectoralis minor muscle consistent with a level 2 dissection. The nerve to the serratus anterior , and the thoracodorsal nerve were both exposed in their entirety, and preserved. Respective muscles twitched when these nerves were pinched with the forceps. Of note the intercostal brachial nerve which branched was sacrificed during the dissection. Also of note there was no gross evidence of residual metastatic disease. Axillary fat was swept off of the anterior surface of the latissimus dorsi muscle, and the lateral chest wall. As well the inferior surface of the axillary vein was freed up. Axillary fat and contents therein submitted in a fragmented fashion all to pathology as left axillary contents. At this point felt the operation was complete. Augustine drain was placed in the inferior skin flap, hemostasis was felt to be achieved, sponge and needle counts are correct, and wound closed with 3-0 Vicryl and Dermabond glue. The drain was attached to bulb suction and functioning satisfactorily. Arm was returned to the anatomic position. Patient tolerated the procedure well, extubated, taken to recovery room in stable condition. ADRIANNA Perez, assisted with tissue retraction, wound closure, and drain placement.
[2018-06-13] MEDS ORDERED: FENTANYL CITRATE INJ/PF 100 MCG/2 ML AMPUL ONE (17:51)
[2018-06-13] MEDS: MORPHINE SULFATE 10 MG/ML INJ ONE ×2 (18:02→18:15)
[2018-06-13] MEDS: TRAMADOL HCL 50 MG TABLET PO PRN (21:24)
[2018-06-14] MEDS: TRAMADOL HCL 50 MG TABLET PO PRN (04:57)
[2018-06-14 09:14] VITALS: BP 119/72
== END 2018-06-14 09:52 | disposition home or self-care (01) ==
LOC: OROUT 13:12 → 4S 13:13
PROVIDERS: ADMIT Surgery; ATTEND Surgery
PROC: 02HV33Z Insertion of Infusion Device into Superior Vena Cava, Percutaneous Approach (ICD-10-PCS; 2018-06-13)
PROC: 07T Lymphatic and Hemic Systems, Resection (ICD-10-PCS; principal; 2018-06-13 15:00)
PROC: 0JH60WZ Insertion of Totally Implantable Vascular Access Device into Chest Subcutaneous Tissue and Fascia, Open Approach (ICD-10-PCS; 2018-06-13 15:00)
DX: C77.3 Secondary and unspecified malignant neoplasm of axilla and upper limb lymph nodes (principal); C50.912 Malignant neoplasm of unspecified site of left female breast; Z01.818 Encounter for other preprocedural examination; B18.2 Chronic viral hepatitis C; K74.60 Unspecified cirrhosis of liver; Z80.41 Family history of malignant neoplasm of ovary; F17.210 Nicotine dependence, cigarettes, uncomplicated; Z90.12 Acquired absence of left breast and nipple
CPT/HCPCS: 36415; 85027; 81025; 88342 ×2; 88341 ×2; 88307 ×2; 77001; 36561; 38745; C1752; C1788; J2250; J0690; J1100; J1885; J3010; J3490 ×2; J2270; J1170; J0330; J2405; J2704; J1642; 1610; J0131

== ENCOUNTER 2018-10-05 12:31 | Emergency (ER) | payer MEDICAID ==
--- NOTE | 2018-10-05 13:00 | ER Document Report ---
ED Medical Screen (RME) - General Chief Complaint: Fever Stated Complaint: FEVER,SORE THROAT,CONGESTION Time Seen by Provider: 10/05/18 12:54 Primary Care Provider: GENO VORA MD [Primary Care Provider] - Follow up as needed Notes: 37-year-old female patient past medical history breast cancer last chemo on 09/24/2018. She reports Monday night 10/01/2018 she developed sinus congestion with clear nasal discharge. She also reports she has had throat pain for the past 2 weeks. On Monday she developed body aches. She developed a fever last night, and diarrhea today after having been constipated all week. She reports her lab work last Monday showed low WBCs. She does have copies of the lab work with her. I have greeted and performed a rapid initial assessment of this patient. A comprehensive ED assessment and evaluation of the patient, analysis of test results and completion of the medical decision making process will be conducted by additional ED providers. TRAVEL OUTSIDE OF THE [place] IN LAST 30 DAYS: No - Related Data Allergies/Adverse Reactions: acetaminophen [From Tylenol] Allergy (Verified 10/05/18 12:37) codeine [Codeine] Allergy (Verified 10/05/18 12:37) ibuprofen Allergy (Verified 10/05/18 12:37) Past Medical History - Social History Chew tobacco use (# tins/day): No Frequency of alcohol use: None Drug Abuse: None - Past Medical History Cardiac Medical History: Denies: Hx Coronary Artery Disease, Hx Heart Attack, Hx Hypertension Pulmonary Medical History: Reports: Hx Asthma Denies: Hx Bronchitis, Hx COPD, Hx Pneumonia Neurological Medical History: Denies: Hx Cerebrovascular Accident, Hx Seizures Renal/ Medical History: Denies: Hx Peritoneal Dialysis GI Medical History: Reports: Hx Cirrhosis, Hx Hepatitis - CComment Only: Hx Ulcer - hepatits c Musculoskeltal Medical History: Reports Hx Arthritis, Reports Hx Musculoskeletal Deformity Psychiatric Medical History: Reports: Hx Anxiety, Hx Depression Traumatic Medical History: Reports: Hx Fractures - right forearm Infectious Medical History: Reports: Hx Hepatitis - C Past Surgical History: Reports: Hx Breast Surgery - left mastectemoy, axillary disection, Hx Section, Hx Dilation and Curettage, Hx Orthopedic Surgery - BL LEs, Hx Tonsillectomy - Immunizations Hx Diphtheria, Pertussis, Tetanus Vaccination: No History of Influenza Vaccine for 04/2017 - 09/2017 Season: No Physical Exam - Vital signs Vitals: Temp Pulse Resp BP Pulse Ox 98.9 F 107 H 16 107/70 99 10/05/18 12:46 10/05/18 12:46 10/05/18 12:46 10/05/18 12:46 10/05/18 12:46 Course - Vital Signs Vital signs: Temp Pulse Resp BP Pulse Ox 98.9 F 107 H 16 107/70 99 10/05/18 12:46 10/05/18 12:46 10/05/18 12:46 10/05/18 12:46 10/05/18 12:46 Doctor's Discharge - Discharge Referrals: GENO VORA MD [Primary Care Provider] - Follow up as needed
[2018-10-05 13:59] LABS: HEMATOCRIT 28.7 % (36.0-47.0); HEMOGLOBIN 10.3 g/dL (12.0-15.5); MEAN CORPUSCULAR HGB CONC 35.9 g/dL (32.0-36.0); MEAN CORPUSCULAR VOLUME 89 fl (80-97); RED BLOOD COUNT 3.21 10^6/uL (3.72-5.28); RED CELL DISTRIBUTION WIDTH 16.3 % (11.5-14.0)
[2018-10-05 14:02] LABS: ALANINE AMINOTRANSFERASE 48 U/L (9-52); ALKALINE PHOSPHATASE 55 U/L (38-126); ANION GAP 8 (5-19); ASPARTATE AMINO TRANSFERASE 32 U/L (14-36); BILIRUBIN,DIRECT 0.2 mg/dL (0.0-0.4); BILIRUBIN,TOTAL 0.5 mg/dL (0.2-1.3); BLOOD UREA NITROGEN 8 mg/dL (7-20); CALCIUM 9.9 mg/dL (8.4-10.2); CARBON DIOXIDE 24 mmol/L (22-30); CHLORIDE 105 mmol/L (98-107); GLUCOSE 87 mg/dL (75-110); POTASSIUM 3.7 mmol/L (3.6-5.0); SODIUM 136.9 mmol/L (137-145); TOTAL PROTEIN 6.7 g/dL (6.3-8.2)
[2018-10-05 14:17] LABS: ABSOLUTE LYMPHOCYTES# (MANUAL) 0.2 10^3/uL (0.5-4.7); ABSOLUTE MONOCYTES # (MANUAL) 0.1 10^3/uL (0.1-1.4); BASOPHILS % (MANUAL) 0 % (0-2); EOSINOPHILS % (MANUAL) 4 % (0-6); LYMPHOCYTES % (MANUAL) 54 % (13-45); MONOCYTES % (MANUAL) 36 % (3-13); SEGMENTED NEUTROPHILS % (MAN) 0 % (42-78); TOTAL CELLS COUNTED 50
[2018-10-05 14:20] LABS: ANISOCYTOSIS 1+; PLATELET CLUMPS PRESENT; POIKILOCYTOSIS SLIGHT; POLYCHROMASIA SLIGHT; SCHISTOCYTES SLIGHT; TEAR DROP CELLS SLIGHT
[2018-10-05 14:21] LABS: PLATELET COMMENT ADEQUATE; WHITE BLOOD COUNT 0.4 10^3/uL (4.0-10.5)
[2018-10-05 14:22] LABS: PLATELET COUNT 154 10^3/uL (150-450)
--- NOTE | 2018-10-05 14:42 | ER Document Report ---
ED Fever - General Chief Complaint: Fever Stated Complaint: FEVER,SORE THROAT,CONGESTION Time Seen by Provider: 10/05/18 12:54 Primary Care Provider: MARY KAY CEJA MD [ACTIVE STAFF] - Follow up tomorrow GENO VORA MD [ACTIVE STAFF] - Follow up tomorrow TRAVEL OUTSIDE OF THE [place] IN LAST 30 DAYS: No - Related Data Allergies/Adverse Reactions: acetaminophen [From Tylenol] Allergy (Verified 10/05/18 12:37) codeine [Codeine] Allergy (Verified 10/05/18 12:37) ibuprofen Allergy (Verified 10/05/18 12:37) Past Medical History - Social History Smoking Status: Current Every Day Smoker Chew tobacco use (# tins/day): No Frequency of alcohol use: None Drug Abuse: None Family History: Reviewed & Not Pertinent, Other Patient has suicidal ideation: No Patient has homicidal ideation: No - Past Medical History Cardiac Medical History: Denies: Hx Coronary Artery Disease, Hx Heart Attack, Hx Hypertension Pulmonary Medical History: Reports: Hx Asthma Denies: Hx Bronchitis, Hx COPD, Hx Pneumonia Neurological Medical History: Denies: Hx Cerebrovascular Accident, Hx Seizures Renal/ Medical History: Denies: Hx Peritoneal Dialysis GI Medical History: Reports: Hx Cirrhosis, Hx Hepatitis - CComment Only: Hx U lcer - hepatits c Musculoskeletal Medical History: Reports Hx Arthritis, Reports Hx Musculoskeletal Deformity Psychiatric Medical History: Reports: Hx Anxiety, Hx Depression Traumatic Medical History: Reports: Hx Fractures - right forearm Infectious Medical History: Reports: Hx Hepatitis - C Past Surgical History: Reports: Hx Breast Surgery - left mastectemoy, axillary disection, Hx Section, Hx Dilation and Curettage, Hx Orthopedic Surgery - BL LEs, Hx Tonsillectomy - Immunizations Hx Diphtheria, Pertussis, Tetanus Vaccination: No Physical Exam - Vital signs Vitals: Temp Pulse Resp BP Pulse Ox 98.9 F 107 H 16 107/70 99 10/05/18 12:46 10/05/18 12:46 10/05/18 12:46 10/05/18 12:46 10/05/18 12:46 Course - Re-evaluation Re-evalutation: 10/05/18 14:[address] Ceja, who also spoke with patient. - Vital Signs Vital signs: Temp Pulse Resp BP Pulse Ox 98.9 F 107 H 16 107/70 99 10/05/18 12:46 10/05/18 12:46 10/05/18 12:46 10/05/18 12:46 10/05/18 12:46 - Laboratory Result Diagrams: 10/05/18 13:31 10/05/18 13:31 Laboratory results interpreted by me: 10/05/18 10/05/18 13:31 13:31 WBC 0.4 L* RBC 3.21 L Hgb 10.3 L Hct 28.7 L RDW 16.3 H Seg Neuts % (Manual) 0 L Lymphocytes % (Manual) 54 H Monocytes % (Manual) 36 H Abs Neuts (Manual) 0.0 L Abs Lymphs (Manual) 0.2 L Sodium 136.9 L Discharge - Discharge Clinical Impression: Neutropenic fever Condition: Stable Disposition: AGAINST MEDICAL ADVICE Instructions: Fever (OM) Additional Instructions: Please call your oncologist today. Return as soon as you are able for admission to the hospital. Prescriptions: Levofloxacin [Levaquin 500 mg Tablet] 500 mg PO DAILY #10 tablet Referrals: GENO VORA MD [ACTIVE STAFF] - Follow up tomorrow MARY KAY CEJA MD [ACTIVE STAFF] - Follow up tomorrow
[2018-10-05 15:06] LABS: A TYPE INFLUENZA AG NEGATIVE (NEGATIVE); B INFLUENZA AG NEGATIVE (NEGATIVE)
[2018-10-05 15:42] VITALS: BP 110/68
--- NOTE | 2018-10-05 16:40 | ER Document Report ---
Entered by MEÑO JACKSON SCRIBE 10/05/18 [id number] Acting as scribe for:MICKIE BLOOM DO ED Fever - General Chief Complaint: Fever Stated Complaint: FEVER,SORE THROAT,CONGESTION Time Seen by Provider: 10/05/18 12:54 Primary Care Provider: MARY KAY WATERMAN MD [ACTIVE STAFF] - Follow up tomorrow GENO VORA MD [ACTIVE STAFF] - Follow up tomorrow Notes: 37-year-old female with breast cancer on chemotherapy who presents to the emergency department today with complaints of a fever of 101.7 at home. Patient states she has been taking TheraFlu for her fever. Patient states her symptoms include nasal congestion and a sore throat. Patient mentions that she "needs to leave right now" stating that her child has a doctor's appointment today. Patient mentions that she was recently in penitentiary so her child was put in a foster home. Patient reports that her child has a feeding tube and her foster parents do not know how to use it. Patient states she will come back after the brian ointment is over. Patient denies any shortness of breath or urinary symptoms. TRAVEL OUTSIDE OF THE [place] IN LAST 30 DAYS: No - Related Data Allergies/Adverse Reactions: acetaminophen [From Tylenol] Allergy (Verified 10/05/18 12:37) codeine [Codeine] Allergy (Verified 10/05/18 12:37) ibuprofen Allergy (Verified 10/05/18 12:37) Past Medical History - General Information source: Patient - Social History Smoking Status: Current Every Day Smoker Cigarette use (# per day): Yes Chew tobacco use (# tins/day): No Frequency of alcohol use: None Drug Abuse: None Lives with: Family Family History: Reviewed & Not Pertinent, Other Patient has suicidal ideation: No Patient has homicidal ideation: No Pulmonary Medical History: Reports: Hx Asthma GI Medical History: Reports: Hx Cirrhosis, Hx Hepatitis - CComment Only: Hx Ulcer - hepatits c Musculoskeletal Medical History: Reports Hx Arthritis, Reports Hx Musculoskeletal Deformity Psychiatric Medical History: Reports: Hx Anxiety, Hx Depression Traumatic Medical History: Reports: Hx Fractures - right forearm Infectious Medical History: Reports: Hx Hepatitis - C Past Surgical History: Reports: Hx Breast Surgery - left mastectemoy, axillary disection, Hx Section, Hx Dilation and Curettage, Hx Orthopedic Surgery - BL LEs, Hx Tonsillectomy - Immunizations Hx Diphtheria, Pertussis, Tetanus Vaccination: No Review of Systems - Review of Systems Constitutional: See HPI, Fever EENT: See HPI, Nose congestion, Throat pain Cardiovascular: No symptoms reported Respiratory: denies: Short of breath Gastrointestinal: No symptoms reported Genitourinary: denies: Dysuria, Flank pain, Urgency Female Genitourinary: No symptoms reported Musculoskeletal: No symptoms reported Skin: No symptoms reported Hematologic/Lymphatic: No symptoms reported Neurological/Psychological: No symptoms reported -: Yes All other systems reviewed and negative Physical Exam - Vital signs Vitals: Temp Pulse Resp BP Pulse Ox 98.9 F 107 H 16 107/70 99 10/05/18 12:46 10/05/18 12:46 10/05/18 12:46 10/05/18 12:46 10/05/18 12:46 Interpretation: Tachycardic - General General appearance: Appears well, Alert - HEENT Head: Normocephalic, Atraumatic Eyes: Normal Pupils: PERRL - Respiratory Respiratory status: No respiratory distress Chest status: Nontender Breath sounds: Normal Chest palpation: Normal - Cardiovascular Rhythm: Tachycardia Heart sounds: Normal auscultation Murmur: No - Abdominal Inspection: Normal Distension: No distension Bowel sounds: Normal Tenderness: Nontender Organomegaly: No organomegaly - Back Back: Normal, Nontender - Extremities General upper extremity: Normal inspection, Nontender, Normal color, Normal ROM, Normal temperature General lower extremity: Normal inspection, Nontender, Normal color, Normal ROM, Normal temperature, Normal weight bearing. No: Maria Guadalupe's sign - Neurological Neuro grossly intact: Yes Cognition: Normal Orientation: AAOx4 [place] Coma Scale Eye Opening: Spontaneous Bj Coma Scale Verbal: Oriented Bj Coma Scale Motor: Obeys Commands [place] Coma Scale Total: 15 Speech: Normal Motor strength normal: LUE, RUE, LLE, RLE Sensory: Normal - Psychological Associated symptoms: Normal affect, Normal mood - Skin Skin Temperature: Warm Skin Moisture: Dry Skin Color: Normal Course - Re-evaluation Re-evalutation: 10/05/18 Patient is a 37-year-old female who had a fever of 101.7 at home. Patient is currently being treated for breast cancer with chemotherapy and is neutropenic at 0.4 with an ANC of 0. Discussed with patient staying in the hospital but states that she has to leave to take care of her child who is in foster care and is having problems with his G-tube. Discussed with Dr. Waterman from oncology who also spoke with the patient over the phone encouraging her to stay. Patient states that she will return after she has this meeting. Levaquin has been prescribed in case she does not come back. Blood cultures have been sent. Flu and strep are negative. Again, patient has been strongly encouraged to return to the emergency department for admission. Patient understands the risks of leaving and that she can come back at any time. She is signing out AGAINST MEDICAL ADVICE. - Vital Signs Vital signs: Temp Pulse Resp BP Pulse Ox 98.4 F 70 18 110/68 98 10/05/18 14:36 10/05/18 14:36 10/05/18 14:36 10/05/18 14:36 10/05/18 14:36 - Laboratory Result Diagrams: 10/05/18 13:31 10/05/18 13:31 Laboratory results interpreted by me: 10/05/18 10/05/18 13:31 13:31 WBC 0.4 L* RBC 3.21 L Hgb 10.3 L Hct 28.7 L RDW 16.3 H Seg Neuts % (Manual) 0 L Lymphocytes % (Manual) 54 H Monocytes % (Manual) 36 H Abs Neuts (Manual) 0.0 L Abs Lymphs (Manual) 0.2 L Sodium 136.9 L Discharge - Discharge Clinical Impression: Neutropenic fever Condition: Stable Disposition: AGAINST MEDICAL ADVICE Instructions: Fever ([facility]) Additional Instructions: Please call your oncologist today. Return as soon as you are able for admission to the hospital. Prescriptions: Levofloxacin [Levaquin 500 mg Tablet] 500 mg PO DAILY #10 tablet Referrals: MARY KAY WATERMAN MD [ACTIVE STAFF] - Follow up tomorrow GENO VORA MD [ACTIVE STAFF] - Follow up tomorrow [place] Attestation: 10/05/18 16:40 I personally performed the services described in the documentation, reviewed and edited the documentation which was dictated to the scribe in my presence, and it accurately records my words and actions. I personally performed the services described in the documentation, reviewed and edited the documentation which was dictated to the scribe in my presence, and it accurately records my words and actions.
[2018-10-08 11:49] LABS: PATH REVIEW PATHOLOGIST REVIEWED
== END 2018-10-05 14:50 | disposition left against medical advice (07) ==
LOC: ER 12:31
DX: D70.9 Neutropenia, unspecified (principal); R50.81 Fever presenting with conditions classified elsewhere; R09.81 Nasal congestion; F17.210 Nicotine dependence, cigarettes, uncomplicated; J45.909 Unspecified asthma, uncomplicated; J02.9 Acute pharyngitis, unspecified; C50.919 Malignant neoplasm of unspecified site of unspecified female breast; Z79.899 Other long term (current) drug therapy; Z88.6 Allergy status to analgesic agent; Z88.5 Allergy status to narcotic agent; Z53.29 Procedure and treatment not carried out because of patient's decision for other reasons
CPT/HCPCS: 36415; 36591; 80053; 85025; 87040; 87070; 87804; 87880; 99283

== ENCOUNTER 2018-11-27 08:27 | Outpatient (CLI) | payer SELFPAY ==
[~2018-11-27 08:27] MED LIST changes: -ACETAMINOPHEN 0 MG/0 ML RTUPB IV ONE; -CEFAZOLIN 1 GM/D5W RTU 1 GM/50 ML RTUPB IV PRN; +CYCLOPHOSPHAMIDE IV PRN; +DEXAMETHASONE 10 MG in NS 50 ML IV PRN; +DEXAMETHASONE SOD PHOSPHATE 20 MG in NORMAL SALINE 50 ML IV PRN; +DIPHENHYDRAMINE 50 MG in NS 50 ML IV PRN; +DOCETAXEL IV PRN; +FAMOTIDINE 20 MG in NS 50 ML IV PRN; -FENTANYL CITRATE INJ/PF 100 MCG/2 ML AMPUL ONE; -HYDROMORPHONE HCL INJ/PF 2 MG/ML AMPULE ONE; -LIDOCAINE 2% INJ-PF (20 MG/ML) 10 ML AMPUL ONE; -MIDAZOLAM 2 MG/2 ML INJ ONE; +NORMAL SALINE 500 ML IV PRN; +NORMAL SALINE IV PRN; -ONDANSETRON HCL INJ/PF 4 MG/2 ML SDV ONE; +PALONOSETRON 0.25 MG/5 ML VIAL IV PRN; -PROPOFOL INJ 200 MG/20 ML VIAL IV ONE
[2018-11-27 09:37] VITALS: BP 105/74
== END 2018-11-27 14:34 | disposition home or self-care (01) ==
LOC: II 08:27 → 5TH 08:56 → II 14:34
PROVIDERS: ATTEND Internal Medicine Hematology & Oncology
DX: Z51.11 Encounter for antineoplastic chemotherapy (principal); C50.412 Malignant neoplasm of upper-outer quadrant of left female breast
CPT/HCPCS: 96413; 96415; 96365; 96366; 96374; 96360; J9070; J1200; J7050; J7040; S0028; J1100; J1642; J2469; J9171

== ENCOUNTER → 2018-12-19 | Outpatient (CLI) | payer SELFPAY ==
[2018-12-19 09:50] LABS: ABSOLUTE LYMPHOCYTES (AUTO) 0.7 10^3/uL (0.5-4.7); ABSOLUTE MONOCYTES (AUTO) 0.5 10^3/uL (0.1-1.4); ABSOLUTE NEUT (AUTO) 3.7 10^3/uL (1.7-8.2); BASOPHILS % (AUTO) 0.5 % (0-2); EOSINOPHILS % (AUTO) 0.3 % (0-6); HEMATOCRIT 34.6 % (36.0-47.0); HEMOGLOBIN 11.8 g/dL (12.0-15.5); LYMPHOCYTES % (AUTO) 14.4 % (13-45); MEAN CORPUSCULAR HEMOGLOBIN 31.3 pg (27.0-33.4); MEAN CORPUSCULAR VOLUME 92 fl (80-97); MONOCYTES % (AUTO) 9.6 % (3-13); PLATELET COUNT 235 10^3/uL (150-450); RED BLOOD COUNT 3.76 10^6/uL (3.72-5.28); SEGMENTED NEUTROPHILS % (AUTO) 75.2 % (42-78); TOTAL CELLS COUNTED % (AUTO) 100 %; WHITE BLOOD COUNT 4.9 10^3/uL (4.0-10.5)
[2018-12-19 10:16] LABS: ALANINE AMINOTRANSFERASE 31 U/L (9-52); ALBUMIN 4.2 g/dL (3.5-5.0); ALKALINE PHOSPHATASE 41 U/L (38-126); ANION GAP 7 (5-19); ASPARTATE AMINO TRANSFERASE 29 U/L (14-36); BILIRUBIN,DIRECT 0.3 mg/dL (0.0-0.4); BILIRUBIN,TOTAL 0.4 mg/dL (0.2-1.3); BLOOD UREA NITROGEN 14 mg/dL (7-20); CALCIUM 9.8 mg/dL (8.4-10.2); CARBON DIOXIDE 31 mmol/L (22-30); CHLORIDE 103 mmol/L (98-107); GLUCOSE 82 mg/dL (75-110); SODIUM 141.3 mmol/L (137-145); TOTAL PROTEIN 6.7 g/dL (6.3-8.2)
== END ==
LOC: OD 08:36
PROVIDERS: ATTEND Internal Medicine
DX: C50.412 Malignant neoplasm of upper-outer quadrant of left female breast (principal); F41.9 Anxiety disorder, unspecified
CPT/HCPCS: 36415; 80053; 84443; 85025

== ENCOUNTER → 2019-01-14 | Outpatient (CLI) | payer SELFPAY ==
--- NOTE | 2019-01-14 12:48 | RADIOLOGY REPORT (SQ) ---
EXAM DESCRIPTION: KUB/ABDOMEN (SINGLE VIEW) COMPLETED DATE/TIME: 01/14/2019 11:27 am REASON FOR STUDY: UPPER ABD PAIN (R10.10) R10.10 UPPER ABDOMINAL PAIN, UNSPECIFIED COMPARISON: None. NUMBER OF VIEWS: One view. TECHNIQUE: Supine radiographic image of the abdomen acquired. LIMITATIONS: None. FINDINGS: BOWEL GAS PATTERN: Normal bowel gas pattern. No dilated loops. CALCIFICATIONS: No suspicious calcifications. SOFT TISSUES: No gross mass or suggestion of organomegaly. HARDWARE: IUD. BONES: No acute fracture. No worrisome bone lesions. OTHER: No other significant finding. IMPRESSION: NO RADIOGRAPHIC EVIDENCE FOR ACUTE ABDOMINAL DISEASE. TECHNICAL DOCUMENTATION: JOB ID: [id number] [employer]- All Rights Reserved Reading location - IP/workstation name: [email or web address]
== END ==
LOC: RAD 11:12
PROVIDERS: ATTEND Physician Assistant Medical
DX: R10.10 Upper abdominal pain, unspecified (principal)
CPT/HCPCS: 74018

== ENCOUNTER 2019-03-01 10:54 | Emergency (ER) | payer SELFPAY ==
[2019-03-01 11:50] LABS: INTERNATIONAL RATION (INR) 0.99; PROTHROMBIN TIME 13.1 SEC (11.4-15.4)
[2019-03-01 11:52] LABS: ALBUMIN 4.5 g/dL (3.5-5.0); ALKALINE PHOSPHATASE 46 U/L (38-126); ANION GAP 9 (5-19); ASPARTATE AMINO TRANSFERASE 38 U/L (14-36); BILIRUBIN,DIRECT 0.1 mg/dL (0.0-0.4); BILIRUBIN,TOTAL 0.3 mg/dL (0.2-1.3); BLOOD UREA NITROGEN 12 mg/dL (7-20); CALCIUM 10.1 mg/dL (8.4-10.2); CARBON DIOXIDE 28 mmol/L (22-30); CHLORIDE 102 mmol/L (98-107); CREATINE KINASE 80 U/L (30-135); POTASSIUM 4.2 mmol/L (3.6-5.0); TOTAL PROTEIN 7.8 g/dL (6.3-8.2)
[2019-03-01 11:54] LABS: GLUCOSE 64 mg/dL (75-110)
[2019-03-01 11:56] LABS: ABSOLUTE EOSINOPHILS # (AUTO) 0.3 10^3/uL (0.0-0.6); ABSOLUTE LYMPHOCYTES (AUTO) 0.5 10^3/uL (0.5-4.7); ABSOLUTE MONOCYTES (AUTO) 0.4 10^3/uL (0.1-1.4); ABSOLUTE NEUT (AUTO) 5.1 10^3/uL (1.7-8.2); BASOPHILS % (AUTO) 0.4 % (0-2); EOSINOPHILS % (AUTO) 4.8 % (0-6); HEMATOCRIT 34.6 % (36.0-47.0); HEMOGLOBIN 11.8 g/dL (12.0-15.5); LYMPHOCYTES % (AUTO) 8.3 % (13-45); MEAN CORPUSCULAR HEMOGLOBIN 30.7 pg (27.0-33.4); MEAN CORPUSCULAR HGB CONC 34.1 g/dL (32.0-36.0); MEAN CORPUSCULAR VOLUME 90 fl (80-97); MONOCYTES % (AUTO) 6.9 % (3-13); PLATELET COUNT 172 10^3/uL (150-450); RED BLOOD COUNT 3.85 10^6/uL (3.72-5.28); RED CELL DISTRIBUTION WIDTH 14.7 % (11.5-14.0); SEGMENTED NEUTROPHILS % (AUTO) 79.6 % (42-78); TOTAL CELLS COUNTED % (AUTO) 100 %; WHITE BLOOD COUNT 6.4 10^3/uL (4.0-10.5)
[2019-03-01 12:03] LABS: CREATINE KINASE MB 0.53 ng/mL (<4.55)
[2019-03-01 12:06] LABS: TROPONIN I < 0.012 ng/mL
--- NOTE | 2019-03-01 12:32 | ER Document Report ---
ED General - General Chief Complaint: Overdose Stated Complaint: POSSIBLE OVERDOSE Time Seen by Provider: 03/01/19 11:40 Notes: Patient apparently took too much of her medications and was unresponsive. Patient says that she was half asleep and not realizing what she was doing. She has a history of breast cancer diagnosed about a year ago and had a left mastectomy and chemotherapy, last dose was this past spring. She has Percocet 10 for pain scribed by*medical grade she took of them earlier this morning and repeated taking 1 of them about 11:00 this morning. She is on Xanax 1 mg and took 1 of them earlier this morning and another 1 mg around 11 AM. EMS was called to the scene and found the patient unresponsive. They gave Narcan 3 mg through an intraosseous in her left leg. Patient awakened and has been awake ever since. Patient denies any intention of harming herself. Insists that she did not take any other drugs and has not been drinking alcohol. She is suffering from chronic pain and also received an injection of Lupron about 3 weeks ago which can cause generalized muscle and body pain. She has neuropathy. Also history of hepatitis C and liver cirrhosis from that condition. Spoke with patient's oncologist, Dr. Wagner. TRAVEL OUTSIDE OF THE [place] IN LAST 30 DAYS: No - Related Data Allergies/Adverse Reactions: acetaminophen [From Tylenol] Allergy (Verified 10/05/18 12:37) codeine [Codeine] Allergy (Verified 10/05/18 12:37) ibuprofen Allergy (Verified 10/05/18 12:37) Past Medical History - Social History Smoking Status: Unknown if Ever Smoked Family History: Reviewed & Not Pertinent, Other Patient has suicidal ideation: No Patient has homicidal ideation: No Pulmonary Medical History: Reports: Hx Asthma Renal/ Medical History: Denies: Hx Peritoneal Dialysis GI Medical History: Reports: Hx Cirrhosis, Hx Hepatitis - CComment Only: Hx Ulcer - hepatits c Musculoskeletal Medical History: Reports Hx Arthritis, Reports Hx Musculoskeletal Deformity Psychiatric Medical History: Reports: Hx Anxiety, Hx Depression Traumatic Medical History: Reports: Hx Fractures - right forearm Infectious Medical History: Reports: Hx Hepatitis - C Past Surgical History: Reports: Hx Breast Surgery - left mastectemoy, axillary disection, Hx Section, Hx Dilation and Curettage, Hx Orthopedic Surgery - BL LEs, Hx Tonsillectomy - Immunizations Hx Diphtheria, Pertussis, Tetanus Vaccination: No Review of Systems - Review of Systems Notes: REVIEW OF SYSTEMS: CONSTITUTIONAL : Denies fever. Complains of generalized pain. EENT: Denies eye, ear, nose or mouth or throat pain or other symptoms. CARDIOVASCULAR: Denies chest pain. RESPIRATORY: Denies cough, chest congestion, or shortness of breath. GASTROINTESTINAL: Denies abdominal pain or nausea, vomiting, or diarrhea. GENITOURINARY: Denies difficulty or painful urinating, urinary frequency, blood in urine. MUSCULOSKELETAL: Denies back or neck pain. Denies joint pain or swelling. SKIN: Denies rash or skin lesions. NEUROLOGICAL: Awake, alert, and oriented x3. Denies sensory loss or motor deficits. ALL OTHER SYSTEMS REVIEWED AND NEGATIVE. Physical Exam - Vital signs Vitals: Resp Pulse Ox 18 98 03/01/19 11:04 03/01/19 11:04 Interpretation: Normal Notes: PHYSICAL EXAMINATION: GENERAL: Well-appearing, in no acute distress. Awake, alert, and oriented x3 at this time. HEAD: Atraumatic, normocephalic. EYES: Pupils equal round and reactive to light, extraocular movements intact. ENT: oropharynx clear without exudates. Moist mucous membranes. NECK: Normal range of motion, supple. LUNGS: Breath sounds clear and equal bilaterally. HEART: Regular rate and rhythm without murmurs. ABDOMEN: Soft, nontender. No guarding or rebound. No masses. BACK: No tenderness throughout entire back. EXTREMITIES: Normal range of motion without pain. Interosseous needle in the proximal left tibia. NEUROLOGICAL: Normal speech. Normal sensory, motor, and reflex exams. Cranial nerves normal. PSYCH: Normal mood, normal affect. SKIN: Warm, dry, no rashes. Course - Re-evaluation Re-evalutation: 03/01/19 19:09 Patient was observed for several hours without any relapse or any apparent effects of medications. Patient once again insisted that she had no intentions of harming herself when she took these extra medications. She simply took them for pain control and realizes she should not have taken double doses. - Vital Signs Vital signs: Temp Pulse Resp BP Pulse Ox 18 105/75 96 03/01/19 16:33 03/01/19 16:33 03/01/19 16:33 - Laboratory Result Diagrams: 03/01/19 11:15 03/01/19 11:15 Laboratory results interpreted by me: 03/01/19 03/01/19 11:15 11:15 Hgb 11.8 L Hct 34.6 L RDW 14.7 H Seg Neutrophils % 79.6 H Lymphocytes % 8.3 L Glucose 64 L AST 38 H Discharge - Discharge Clinical Impression: Overdose of medication Condition: Stable Disposition: HOME, SELF-CARE Additional Instructions: NORMAL EXAM AND WORKUP: At this time, your examination and workup show no significant abnormality. No significant abnormal physical findings were noted. All laboratory, EKG, and imaging (x-ray, CT scans, ultrasound) studies that were ordered show no significant abnormality. Although your examination and all studies that were ordered showed no significant abnormal finding, there are no examinations and no studies that are 100% accurate. There is always the possibility that some abnormality could exist and not be detected with physical examination or within the limits and capabilities of laboratory and other studies. You should return or follow up as you were instructed on your visit today for further evaluation if your symptoms do not resolve. Overdose / Ingestion You have taken more medication than you should have. After your evaluation and care, it is felt that your overdose is not likely to be harmful or of any significant consequences to you and you are being discharged. In the future, you should be careful not to take more medications than what is prescribed for you. Although your overdose does not seem to be of any danger to you at this time, if you develop any unusual or unexpected symptoms after your discharge, you should return to the Emergency Department immediately for re-evaluation. NORMAL EXAM AND WORKUP: At this time, your examination and workup show no significant abnormality. No significant abnormal physical findings were noted. All laboratory, EKG, and imaging (x-ray, CT scans, ultrasound) studies that were ordered show no significant abnormality. Although your examination and all studies that were ordered showed no significant abnormal finding, there are no examinations and no studies that are 100% accurate. There is always the possibility that some abnormality could exist and not be detected with physical examination or within the limits and capabilities of laboratory and other studies. You should return or follow up as you were instructed on your visit today for further evaluation if your symptoms do not resolve. Do not take so much medication in the future. FOLLOW-UP CARE: If you have been referred to a physician for follow-up care, call the physicians office for an appointment as you were instructed or within the next two days. If you experience worsening or a significant change in your symptoms, notify the physician immediately or return to the Emergency Department at any time for re-evaluation.
[2019-03-01 13:37] LABS: APPEARANCE,URINE CLEAR; BILIRUBIN,URINE NEGATIVE (NEGATIVE); COLOR,URINE YELLOW; GLUCOSE, URINE NEGATIVE (NEGATIVE); KETONES,URINE NEGATIVE (NEGATIVE); LEUKOCYTE ESTERASE,URINE NEGATIVE (NEGATIVE); NITRITE,URINE NEGATIVE (NEGATIVE); PROTEIN,URINE NEGATIVE (NEGATIVE); URINE SPECIFIC GRAVITY 1.011; UROBILINOGEN,URINE NEGATIVE mg/dL (<2.0)
[2019-03-01 13:44] LABS: URINE AMPHETAMINES SCREEN NEGATIVE; URINE BARBITURATES SCREEN NEGATIVE; URINE BENZODIAZEPINES SCREEN UNCONFIRMED POSITIVE; URINE COCAINE SCREEN NEGATIVE; URINE MARIJUANA (THC) SCREEN NEGATIVE; URINE METHADONE SCREEN NEGATIVE; URINE PHENCYCLIDINE SCREEN NEGATIVE
[2019-03-01 16:54] VITALS: BP 105/75
--- NOTE | 2019-03-02 10:19 | EKG REPORT ---
SEVERITY:- OTHERWISE NORMAL ECG - SINUS TACHYCARDIA BORDERLINE LEFT AXIS DEVIATION : Confirmed by: Yamini Castle 02-Mar-2019 10:18:04
== END 2019-03-01 16:53 | disposition home or self-care (01) ==
LOC: ER 10:54
DX: T42.4X1A Poisoning by benzodiazepines, accidental (unintentional), initial encounter (principal); T40.2X1A Poisoning by other opioids, accidental (unintentional), initial encounter; Z85.3 Personal history of malignant neoplasm of breast; G89.29 Other chronic pain; Z90.12 Acquired absence of left breast and nipple; Z86.19 Personal history of other infectious and parasitic diseases
CPT/HCPCS: 93005; 99285; 51701; 36415; 82553; 82550; 85025; 85610; 80053; 81001; 84484; 80307; 93010; J1642

== ENCOUNTER 2019-03-19 10:45 | Outpatient (CLI) | payer SELFPAY ==
[~2019-03-19 10:45] MED LIST changes: -CYCLOPHOSPHAMIDE IV PRN; -DEXAMETHASONE 10 MG in NS 50 ML IV PRN; -DEXAMETHASONE SOD PHOSPHATE 20 MG in NORMAL SALINE 50 ML IV PRN; -DIPHENHYDRAMINE 50 MG in NS 50 ML IV PRN; -DOCETAXEL IV PRN; -FAMOTIDINE 20 MG in NS 50 ML IV PRN; +LEUPROLIDE 7.5 MG IM PRN; -NORMAL SALINE 500 ML IV PRN; -NORMAL SALINE IV PRN; -PALONOSETRON 0.25 MG/5 ML VIAL IV PRN
[2019-03-19 11:04] VITALS: BP 107/79
== END 2019-03-19 11:27 | disposition home or self-care (01) ==
LOC: II 10:45 → 5TH 10:47 → II 11:27
PROVIDERS: ATTEND Internal Medicine
PROC: 3E023GC Introduction of Other Therapeutic Substance into Muscle, Percutaneous Approach (ICD-10-PCS; principal; 2019-03-19)
DX: Z51.11 Encounter for antineoplastic chemotherapy (principal); C50.412 Malignant neoplasm of upper-outer quadrant of left female breast
CPT/HCPCS: 96402; J9217

== ENCOUNTER 2019-04-30 15:21 | Outpatient (CLI) | payer OTHER ==
[2019-04-30 15:30] VITALS: BP 126/74
== END 2019-04-30 15:42 | disposition home or self-care (01) ==
LOC: II 15:21 → 5TH 15:23 → II 15:42
PROVIDERS: ATTEND Internal Medicine
DX: Z51.11 Encounter for antineoplastic chemotherapy (principal); C50.412 Malignant neoplasm of upper-outer quadrant of left female breast
CPT/HCPCS: 96402; J9217

== ENCOUNTER → 2019-05-03 | Outpatient (CLI) | payer OTHER ==
--- NOTE | 2019-05-03 10:39 | WOMENS IMAGING REPORT ---
EXAM DESCRIPTION: RIGHT DIAGNOSTIC MAMMO W/CAD; U/S BREAST UNILAT LIMITED COMPLETED DATE/TIME: 05/03/2019 8:57 am; 05/03/2019 9:31 am REASON FOR STUDY: N63.10 RT LUMP; RT BREAST PALP N63.10 UNSPECIFIED LUMP IN THE RIGHT BREAST, UNSPE CIFIED SHAWN COMPARISON: 03/08/2018. EXAM PARAMETERS: Standard craniocaudal and mediolateral oblique images of the breast recorded with d igital acquisition. Additional true lateral image acquired. Read with the assistance of CAD. .[facility] - R2 Return Clerk Version 9.2 LIMITATIONS: None. FINDINGS: BREAST LATERALITY: right MASSES: No suspicious masses. CALCIFICATIONS: No new or suspicious calcifications. ARCHITECTURAL DISTORTION: None. DEVELOPING DENSITY: None. ASYMMETRY: None noted. OTHER: No other significant findings. BREAST ULTRASOUND: TECHNIQUE: Static and dynamic grayscale images acquired of the right breast in the specific areas of clinical/mammographic concern. Selected color Doppler images recorded. ELASTOGRAPHY PERFORMED: No. LIMITATIONS: None. FINDINGS: MASS: No mass identified. Normal glandular tissue. ELASTOGRAPHY CHARACTERISTICS: Not applicable. OTHER: No other significant finding. IMPRESSION: Stable mammographic appearance of the right breast. No worrisome mammographic or sonogr aphic abnormality in the area of concern. BREAST DENSITY: b. There are scattered areas of fibroglandular density. BIRAD: ASSESSMENT: 1 Negative. RECOMMENDATION: RECOMMENDED FOLLOW UP: Birads 1 or 2: No breast imaging finding to explain the patie nt's presenting complaint. Further intervention should be based on the degree of clinical suspicion. SPECIFIC INTERVENTION/IMAGING/CONSULTATION RECOMMENDED:No additional intervention/ imaging/consultati on needed at this time. COMMUNICATION:The imaging findings were not discussed with the patient. Her referring provider has be en notified of the findings. COMMENT: The patient has been notified of the results by letter per [place] requirements. Additional no tification policies are in place for contacting patient with suspicious or incomplete findings. Quality ID #[id number]: The [employer] recommends an annual screening mammogram for women aged 40 years or over. This facility utilizes a reminder system to ensure that all patients receive reminder letters, and/or direct phone calls for appointments. This includes reminders for routine scr eening mammograms, diagnostic mammograms, or other Breast Imaging Interventions when appropriate. Th is patient will be placed in the appropriate reminder system. TECHNICAL DOCUMENTATION: FINDING NUMBER: (1) ASSESSMENT: (1) JOB ID: [id number] [employer]- All Rights Reserved Reading location - IP/workstation name: [email or web address]
== END ==
LOC: WI 08:25
PROVIDERS: ATTEND Physician Assistant Medical
DX: N63.10 Unspecified lump in the right breast, unspecified quadrant (principal)
CPT/HCPCS: 76642

== ENCOUNTER → 2019-05-24 | Outpatient (CLI) | payer OTHER ==
--- NOTE | 2019-05-24 19:34 | RADIOLOGY REPORT (SQ) ---
EXAM DESCRIPTION: L SPINE WHOLE COMPLETED DATE/TIME: 05/24/2019 6:06 pm REASON FOR STUDY: M54.5 LOW BACK PAIN M54.5 LOW BACK PAIN COMPARISON: None. NUMBER OF VIEWS: Five views including obliques. TECHNIQUE: AP, lateral, oblique, and sacral radiographic images acquired of the lumbar spine. LIMITATIONS: None. FINDINGS: MINERALIZATION: Normal. SEGMENTATION: Normal. No transitional anatomy. ALIGNMENT: Normal. VERTEBRAE: Maintained height. No fracture or worrisome bone lesion. DISCS: Preserved height. No significant osteophytes or end plate irregularity. POSTERIOR ELEMENTS: Pedicles and facets are intact. No pars defect or posterior arch defects. HARDWARE: None in the spine. PARASPINAL SOFT TISSUES: Normal. PELVIS: Intact as visualized. No fractures or worrisome bone lesions. SI joints intact. OTHER: No other significant finding. IMPRESSION: NORMAL 5 VIEW LUMBAR SPINE. TECHNICAL DOCUMENTATION: JOB ID: [id number] [employer]- All Rights Reserved Reading location - IP/workstation name: [email or web address]
== END ==
LOC: RAD 17:39
PROVIDERS: ATTEND Family Medicine
DX: M54.5 Low back pain (principal)
CPT/HCPCS: 72110

== ENCOUNTER → 2020-01-28 | Outpatient (CLI) | payer MEDICAID, OTHER ==
[2020-01-28 16:47] LABS: ALKALINE PHOSPHATASE 60 U/L (38-126); ANION GAP 6 (5-19); ASPARTATE AMINO TRANSFERASE 32 U/L (14-36); BILIRUBIN,TOTAL 0.3 mg/dL (0.2-1.3); BLOOD UREA NITROGEN 15 mg/dL (7-20); CALCIUM 10.7 mg/dL (8.4-10.2); CARBON DIOXIDE 29 mmol/L (22-30); CHLORIDE 103 mmol/L (98-107); GLUCOSE 108 mg/dL (75-110); POTASSIUM 4.3 mmol/L (3.6-5.0); TOTAL PROTEIN 8.1 g/dL (6.3-8.2)
== END ==
LOC: OD 15:51
PROVIDERS: ATTEND Internal Medicine
DX: B19.20 Unspecified viral hepatitis C without hepatic coma (principal)
CPT/HCPCS: 36415; 80053; 80074

== ENCOUNTER → 2020-04-06 | Outpatient (CLI) | payer MEDICAID ==
--- NOTE | 2020-04-06 10:57 | WOMENS IMAGING REPORT ---
EXAM DESCRIPTION: U/S ABDOMEN LIMITED IMAGES COMPLETED DATE/TIME: 04/06/2020 10:48 am REASON FOR STUDY: R10.11 RIGHT UPPER QUADRANT PAIN R10.11 RIGHT UPPER QUADRANT PAIN COMPARISON: None. TECHNIQUE: Dynamic and static grayscale images acquired of the abdomen and recorded on PACS. Additio nal selected color Doppler and spectral images recorded. LIMITATIONS: None. FINDINGS: PANCREAS: No masses. Visualized pancreatic duct normal caliber. LIVER: No masses. Echotexture normal. LIVER VASCULATURE: Normal directional flow of the main portal vein and hepatic veins. GALLBLADDER: No stones. Normal wall thickness. No pericholecystic fluid. ULTRASOUND-DETECTED LEVI'S SIGN: Negative. INTRAHEPATIC DUCTS AND COMMON DUCT: CBD and intrahepatic ducts normal caliber. No filling defects. INFERIOR VENA CAVA: Normal flow. AORTA: No aneurysm. RIGHT KIDNEY: Normal size. Normal echogenicity. No solid or suspicious masses. No hydronephrosis. No calcifications. PERITONEAL AND RIGHT PLEURAL SPACE: No ascites or effusions. OTHER: No other significant findings. IMPRESSION: NORMAL RIGHT UPPER QUADRANT ULTRASOUND. TECHNICAL DOCUMENTATION: JOB ID: [id number] 2010 [employer]- All Rights Reserved Reading location - IP/workstation name: [email or web address]
== END ==
LOC: WI 09:52
PROVIDERS: ATTEND Internal Medicine Gastroenterology
DX: R10.11 Right upper quadrant pain (principal)
CPT/HCPCS: 76705

== ENCOUNTER 2020-07-14 14:11 | Day surgery (SDC) | payer OTHER, MEDICAID ==
[~2020-07-14 14:11] MED LIST changes: +CEFAZOLIN 2 GM/D5W RTU 2 GM/50 ML RTUPB IV PRN; +DEXAMETHASONE SOD PHOSPHATE INJ 4 MG/1 ML VIAL ONE; +FENTANYL CITRATE INJ/PF 100 MCG/2 ML AMPUL ONE; -LEUPROLIDE 7.5 MG IM PRN; +MIDAZOLAM 2 MG/2 ML INJ ONE; +ONDANSETRON HCL INJ/PF 4 MG/2 ML SDV ONE; +PROPOFOL INJ 200 MG/20 ML VIAL IV ONE
[2020-07-14] MEDS ORDERED: BUPIVACAINE HCL 0.5 % INJ/PF 30 ML SDV ONE (15:37)
[2020-07-14] MEDS ORDERED: CEFAZOLIN 2 GM/D5W RTU 2 GM/50 ML RTUPB IV ONE (16:17)
[2020-07-14] MEDS ORDERED: DIPHENHYDRAMINE HCL 50 MG/ML VIAL IV PRN (16:49)
[2020-07-14] MEDS ORDERED: MEPERIDINE HCL/PF INJ 25 MG/1 ML DISP.SYRIN IV PRN (16:49)
[2020-07-14] MEDS ORDERED: ONDANSETRON HCL INJ/PF 4 MG/2 ML SDV IV PRN (16:49)
[2020-07-14] MEDS ORDERED: PROMETHAZINE HCL INJ 25 MG/1 ML VIAL IV PRN ×2 (16:49)
[2020-07-14] MEDS ORDERED: FENTANYL CITRATE INJ/PF 100 MCG/2 ML AMPUL IV PRN ×2 (16:49)
[2020-07-14] MEDS ORDERED: MORPHINE SULFATE 10 MG/ML INJ IV PRN ×2 (16:49→18:45)
[2020-07-14] MEDS ORDERED: OXYCODONE-ACETAMINOPHEN 5-325 MG TABLET PO PRN (18:45)
[2020-07-14] MEDS ORDERED: KETOROLAC TROMETHAMINE 60 MG/2 ML SDV ONE (19:00)
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
--- NOTE | 2020-07-14 19:13 | Discharge Summary ---
Discharge Summary (SDC) - Discharge Final Diagnosis: Right ulnar shaft fracture Right thumb metacarpal base fracture Date of Surgery: 07/14/20 Discharge Date: 07/14/20 Condition: Good Treatment or Instructions: Schedule Follow Up w/ Dr. Lonny Hull @ [facility] to be seen in 10-14 days or as scheduled [place]: [place]: [place]: Ice and elevate Keep splint clean/dry/intact, do not remove. If your fingers become numb please unwrap the Luis Angel wrap but leave the splint in place, if the sensation does not return within 30 minutes please return to the emergency department. May begin finger range of motion attempting to make full fist. Please use ibuprofen (Motrin or Advil) 600-800 mg every 8 hours as needed for pain or fever DO NOT TAKE w/ TORADOL may use once TORADOL complete. You may also use acetaminophen (Tylenol) 1000 mg every 4-6 hours as needed for pain or fever. Please be aware that many medications contain acetaminophen, do not exceed a total of 1000 mg of acetaminophen every 6 hours. If ibuprofen and acetaminophen are not sufficient for your pain you may take the Percocet/[place]. Please be aware that the Percocet/[place] does contain Tylenol. Stool softener of choice when on pain medication. USE OF [id number] IBUPROFEN: Ibuprofen (Advil, Nuprin, Medipren, Motrin IB) is a medication for fever and pain control. In addition, it has anti- inflammatory effects which may be beneficial, especially in the treatment of injuries. It's best to take ibuprofen with food. Persons with ulcer disease or allergy to aspirin should notify their physician of this before taking ibuprofen. Ibuprofen can be given every four to six hours, for a total of four doses daily. Age Pain or fever dose Antiinflammatory dose 6-8 yr 200 mg (1 tab) 200 mg (1 tab) 9-11 yr 200 mg (1 tab) 200-400 mg (1-2 tab) 11-14 yr 200-400 mg (1-2 tab) 400 mg (2 tab) 15-adult 400 mg (2 tab) 600 mg (3 tab) ORAL NARCOTIC MEDICATION: You have been given a prescription for pain control. This medication is a narcotic. It's best taken with food, as nausea can result if taken on an empty stomach. Don't operate machinery or drive within six hours of taking this medi cation. Do not combine this medicine with alcohol, or with any medication which can cause sedation (such as cold tablets or sleeping pills) unless you get permission from the physician. Narcotics tend to cause constipation. If possible, drink plenty of fluids and eat a diet high in fiber and fruits. Please be aware that prescription narcotics also have the potential for abuse. People become addicted to these medications because of the general sense of wellbeing that they induce. This feeling along with a significant reduction in tension, anxiety, and aggression provides a stimulating seductive quality to these drugs. Once your pain is under control, we encourage you to discard your unused narcotics. Prescriptions: Oxycodone HCl/Acetaminophen [Percocet 7.5-325 mg Tablet] 1 tab PO Q6 PRN #25 tab PRN Reason: Referrals: DYLAN PENA PA-C [Primary Care Provider] - Discharge Diet: As Tolerated Respiratory Treatments at Home: Deep Breathing/Coughing, Incentive Spirometer Discharge Activity: No Lifting Over 10 Pounds, No Lifting/Push/Pulling Report the Following to Your Physician Immediately: Unusual Bleeding, Redness, Swelling, Warmth, Increased Soreness
[2020-07-14] MEDS ORDERED: FENTANYL CITRATE INJ/PF 100 MCG/2 ML AMPUL ONE (19:17)
[2020-07-14] MEDS: FENTANYL CITRATE INJ/PF 100 MCG/2 ML AMPUL IV PRN ×2 (19:18→19:23)
[2020-07-14] MEDS ORDERED: OXYCODONE-ACETAMINOPHEN 5-325 MG TABLET ONE (19:37)
[2020-07-14 21:07] VITALS: BP 124/90
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
--- NOTE | 2020-07-15 08:21 | RADIOLOGY REPORT (SQ) ---
EXAM DESCRIPTION: FINGER RIGHT IMAGES COMPLETED DATE/TIME: 07/14/2020 6:58 pm REASON FOR STUDY: ORIF RT THUMB S52.201A UNSP FRACTURE OF SHAFT OF RIGHT ULNA, INIT FOR CLOS S62.22 1D DISPL JON'S FRACTURE, R HAND, SUBS FOR FX W ROU COMPARISON: None. FLUOROSCOPY TIME: 37 seconds Spot images saved to PACS. TECHNIQUE: Intra-operative images acquired during surgical procedure to evaluate progress. NUMBER OF IMAGES: 3 LIMITATIONS: None. FINDINGS: Fluoroscopy was provided for intraoperative procedure. Please refer to the operative repo rt for further discussion. IMPRESSION: IMAGE(S) OBTAINED DURING PROCEDURE. COMMENT: Quality ID 145: Final reports for procedures using fluoroscopy that document radiation exp osure indices, or exposure time and number of fluorographic images (if radiation exposure indices are not available) Please consult full operative report of the attending physician for description of the procedure. TECHNICAL DOCUMENTATION: JOB ID: [id number] 2010 [employer]- All Rights Reserved Reading location - IP/workstation name: [email or web address]
== END 2020-07-14 21:05 | disposition home or self-care (01) ==
LOC: OROUT 14:11
PROVIDERS: ATTEND Orthopaedic Surgery
DX: S52.221A Displaced transverse fracture of shaft of right ulna, initial encounter for closed fracture (principal); S62.221A Displaced Rolando's fracture, right hand, initial encounter for closed fracture; V89.2XXA Person injured in unspecified motor-vehicle accident, traffic, initial encounter; Z01.812 Encounter for preprocedural laboratory examination; Z20.828 Contact with and (suspected) exposure to other viral communicable diseases; Z79.899 Other long term (current) drug therapy; F41.9 Anxiety disorder, unspecified; F32.9 Major depressive disorder, single episode, unspecified; G62.9 Polyneuropathy, unspecified; F17.210 Nicotine dependence, cigarettes, uncomplicated; Z86.19 Personal history of other infectious and parasitic diseases; Z85.3 Personal history of malignant neoplasm of breast
CPT/HCPCS: 87635; 81025; 73140; 73110; 25545; 26665; 20680; C1713 ×14; C1769; J2250; J3490; J1100; J1885; J3010; J2405; J2704; J0690; J1642; C9803